=== PATIENT | male | born 1960 | race Caucasian/White ===

== ENCOUNTER 2020-04-27 16:03 | Outpatient (CLI) | payer OTHER, SELFPAY ==
--- NOTE | ~2020-04-27 | CT_ITS ---
EXAMINATION:CT lung screening DATE: 04/27/2020 16:55 INDICATION: Personal history of tobacco dependence. Smoker who quit 12 years ago with 60 pack year hi story. TECHNIQUE: Computed tomography (CT) of the chest was performed without intravenous contrast. Automate d exposure control and iterative reconstruction technique were employed. The dose-length product (DLP ) was 220.06 mGy-cm. COMPARISON: Chest 2 views 03/13/2018 FINDINGS: There is mild emphysema. There are peripheral mild reticular opacities in the upper and low er lung zones. Calcified left lung nodules and calcified left hilar and mediastinal lymph nodes are c onsistent with old granulomatous disease. No pleural effusion. The heart size is normal. No pericardi al effusion. There is mild thoracic spondylosis. IMPRESSION: 1. Lung-RADS category 1: Negative. Continue annual screening with noncontrast low-dose chest CT in 12 months. Reviewed, dictated and finalized at location A. IMPRESSION: 1. Lung-RADS category 1: Negative. Continue annual screening with noncontrast l ow-dose chest CT in 12 months.
== END 2020-04-27 16:04 | disposition home or self-care (01) ==
PROVIDERS: PCP Family Medicine; Visit Provider Family Medicine
DX: Z12.2 Encounter for screening for malignant neoplasm of respiratory organs (principal); Z87.891 Personal history of nicotine dependence
CPT/HCPCS: G0297

== ENCOUNTER 2020-05-12 06:51 | Outpatient (CLI) | payer OTHER, SELFPAY ==
[2020-05-12 07:37] LABS: Hematocrit 37.3 % (42.0-52.0); Hemoglobin 12.8 g/dL (14.0-18.0); Mean Corpuscular HGB Conc 34.3 g/dl (32-36); Mean Corpuscular Hemoglobin 31.8 pg (26-34); Mean Corpuscular Volume 92.8 fl (80-100); Mean Platelet Volume 9.4 fl (7.4-10.4); Platelet Count Result 227 k/mm3 (150-375); Red Blood Count 4.02 M/mm3 (4.6-6.20); Red Cell Distribution Width 12.2 % (11.5-14.5); White Blood Count 6.9 K/mm3 (4.5-10.0)
[2020-05-12 07:44] LABS: Add Urine Microscopic? NO; Appearance Urine Clear (Clear); Bilirubin Urine Negative (Negative); Blood Urine Negative (Negative); Color Urine Yellow (Yellow); Glucose Urine UA Negative (Negative); Ketones Urine Negative (Negative); Leukocyte Esterase Ur Negative LEU/UL (NEGATIVE); Mucus Urine Rare /lpf; Nitrate Urine Negative (Negative); Protein Urine Negative (Negative); Specific Grav Ur 1.018 (1.001-1.035); Squamous Epithelial Cell Urine Rare /hpf (Few); Urobilinogen Urine Negative mg/dL (<2.0); WBC Urine 0-3 /hpf (0-3)
[2020-05-12 07:52] LABS: Alanine Aminotransferase 36 U/L (4-50); Albumin Level 4.4 g/dL (3.5-5.1); Alkaline Phosphatase 49 U/L (38-126); Anion Gap 13.3 mmol/L (7-16); Aspartate Amino Transferase 29 U/L (17-59); Bilirubin,Total 0.4 mg/dL (0.2-1.3); Blood Urea Nitrogen 21 mg/dL (9-20); Calcium 8.9 mg/dL (8.4-10.2); Carbon Dioxide 24 mmol/L (22-30); Chloride 101 mmol/L (98-107); Cholesterol 240 mg/dL (0-200); Estimated Glomerular Filt Rate > 60; Glucose 97 mg/dL (75-110); HDL Direct 60 mg/dL; Potassium 4.3 mmol/L (3.4-5.0); Sodium 134 mmol/L (137-145); Triglycerides 211 mg/dL (<150)
[2020-05-12 08:04] LABS: LDL Cholesterol Direct 139 mg/dL
[2020-05-12 08:23] LABS: Prostate Specific Antigen 0.4 ng/mL (< OR = 4.0)
== END 2020-05-12 06:52 | disposition home or self-care (01) ==
PROVIDERS: PCP Family Medicine; Visit Provider Family Medicine
DX: Z00.00 Encounter for general adult medical examination without abnormal findings (principal); R73.01 Impaired fasting glucose; I10 Essential (primary) hypertension; E78.2 Mixed hyperlipidemia
CPT/HCPCS: 36415; 80053; 80061; 81003; 84153; 84443; 85027

== ENCOUNTER 2020-07-11 07:19 | Inpatient (IN) | payer OTHER, SELFPAY ==
[2020-07-11] VITALS (23 sets, daily range): BP systolic 114–169; BP diastolic 65–110; PULSE 60–88; RESP 0–20; TEMP 36.1–36.8; O2SAT 94–100; BMI 30.2
--- NOTE | ~2020-07-11 | XR_ITS ---
XR chest 2V 07/11/2020 07:57 Indication: Shortness of breath and chest pain Procedure: PA and lateral views of the chest Comparison: 03/13/2018 Findings: Heart size normal. No focal air space disease, pulmonary edema, pleural effusion or suspect ed pneumothorax. The lungs are hyperinflated which is consistent with, but not diagnostic of chronic obstructive pulmo nary disease. Impression: 1: No acute cardiopulmonary disease. Reviewed, dictated and finalized at location A. Impression: 1: No acute cardiopulmonary disease.
--- NOTE | 2020-07-11 07:28 | ECG_ITS ---
Measurements Intervals [place] Rate: 83 P: 78 [place]: 173 QRS: -75 QRSD: 105 T: 81 QT: 369 QTc: 435 Interpretive Statements SINUS RHYTHM INCOMPLETE RIGHT BUNDLE BRANCH BLOCK LEFT ANTERIOR FASCICULAR BLOCK BORDERLINE ST ABNORMALITY- ANTEROLAT/INF LEADS Electronically Signed On 07-11-2020 7:52:47 CDT by Lobo Machado D.O.
--- NOTE | 2020-07-11 07:41 | ED.GENADULT ---
HPI - General Adult General Chief complaint: Unspecified Stated complaint: Chest Pain Time Seen by Provider: 07/11/20 07:26 Source: patient History of Present Illness HPI narrative: Patient is 60 y/o male complaining of upper mid sternal chest pain staring 4-5 hours ago at 3:00 AM. He rates his pain as 3/10. He describes his pain a sensation of food stuck in throat. There is no pain radiation. The pain has decreased spontaneously. He has chronic SOB due to COPD. He state that he had a similar episode 3 weeks ago with sweating and it got better after he took his 's Nitro. He has history of a hypertension, but has no known history of CAD. Related Data Home Medications Medication Instructions Recorded Confirmed albuterol sulfate 90 mcg/actuation 1 puff INHALATION Q4H PRN 04/23/20 07/11/20 aerosol inhaler lisinopril 10 mg tablet 10 mg PO DAILY 04/23/20 07/11/20 Allergies Allergy/AdvReac Type Severity Reaction Status Date / Time No Known Allergies Allergy Verified 07/11/20 07:29 Review of Systems Constitutional: Constitutional: Denies chills, Denies fever(s), Denies headache(s) and Denies weakness Eyes: Eyes: Denies blurry vision ENT: Denies headache(s) and Denies neck pain Cardiovascular: Cardiovascular: Reports chest pain and Reports dyspnea Respiratory: Respiratory: Denies cough and Reports dyspnea Gastrointestinal: Gastrointestinal: Denies abdominal pain, Denies diarrhea, Denies nausea and Denies vomiting Genitourinary: Genitourinary: Denies hematuria and Denies dysuria Musculoskeletal: Musculoskeletal: Denies back pain and Denies neck pain Neurologic: Denies headache(s) and Denies weakness [facility] Past Medical History Medical History ANITA (generalized anxiety disorder) HTN (hypertension) Hyperglyceridemia IFG (impaired fasting glucose) Intermittent asthma Surgical History Surgical History History of bunionectomy History of hemorrhoidectomy Family History Family History (Updated 07/11/20 @ 13:59 by Ashely Mcneill RN) Other Unknown family medical history Social History Social History Smoking packs per day: 1 Smoking cigarettes per day: 20.0 Years smoked: 30 Smoking pack-years: 30.00 Smoking status: Former smoker Smoking end date: 10/15/04 Alcohol intake: current Drinks per week: 15 Substance use: never Substance use type: does not use Gender identity (if verbalized by the patient): Male Spiritual care concerns: No Exam Const: General: no acute distress and well developed Orientation/consciousness: oriented to person, oriented to place, oriented to time and patient oriented x3 HENMT: Head: normocephalic Ears: external ears normal General nose exam: Normal external nose present Eyes: General: appearance normal, both eyes and all related structures Conjunctivae: conjunctivae normal Neck: Neck: normal visual inspection and full ROM Chest: Chest palpation & inspection: normal inspection of the chest and no tenderness Resp: Effort & Inspection: normal respiratory effort Auscultation: clear to auscultation bilaterally Cardio: Rate: regular rate Rhythm: regular rhythm GI: GI Palp: No abdominal tenderness and Yes Soft to palpation Skin: General skin exam: normal color and turgor normal Neuro: General: oriented to person, oriented to place, oriented to time and patient oriented x3 Cognition (Neuro): normal cognition Extrem: General: normal to inspection, full ROM and no pedal edema Psych: Appearance: grossly normal Mental Status: mental status grossly normal Affect: normal affect Course Reevaluation(s) Reevaluation #1: Rechecked. Patient feels well. He has no chest pain at this time. Date: 07/11/20 Time: 11:47 Consultations Consultation #1: Discussed with Dr. Jackman, who agrees to ad
[2020-07-11 07:59] LABS: Basophils Absolute Auto 0.1 K/mm3 (0.0-0.1); Eosinophils Absolute Auto 0.2 K/mm3 (0-0.3); Eosinophils Percent Auto 2.6 % (0-4.4); Hematocrit 46.3 % (42.0-52.0); Hemoglobin 15.5 g/dL (14.0-18.0); Immature Granulocyte Absolute 0.07 K/mm3 (0.00-0.031); Immature Granulocyte Percent A 0.9 % (0-0.5); Lymphocytes Absolute Auto 3.37 K/mm3 (0.9-3.2); Lymphocytes Percent Auto 43.4 % (18.3-44.2); Mean Corpuscular HGB Conc 33.5 g/dl (32-36); Mean Corpuscular Hemoglobin 31.4 pg (26-34); Mean Corpuscular Volume 93.9 fl (80-100); Mean Platelet Volume 9.8 fl (7.4-10.4); Monocytes Absolute Auto 0.7 K/mm3 (0.1-0.6); Monocytes Percent Auto 9.4 % (2.6-8.5); Neutrophils Absolute Auto 3.3 K/mm3 (1.3-6.7); Neutrophils Percent Auto 42.7 % (45.5-73.1); Platelet Count Result 247 k/mm3 (150-375); Red Blood Count 4.93 M/mm3 (4.6-6.20); Red Cell Distribution Width 12.2 % (11.5-14.5); White Blood Count 7.8 K/mm3 (4.5-10.0)
[2020-07-11 08:11] LABS: Atypical Lymphocytes Present; Platelet Estimate Adequate (Adequate)
[2020-07-11 08:14] LABS: Alanine Aminotransferase 27 U/L (4-50); Alkaline Phosphatase 57 U/L (38-126); Anion Gap 13 mmol/L (8-16); Aspartate Amino Transferase 41 U/L (17-59); Bilirubin,Total 0.6 mg/dL (0.2-1.3); Blood Urea Nitrogen 21 mg/dL (9-20); Calcium 9.4 mg/dL (8.4-10.2); Carbon Dioxide 28 mmol/L (22-30); Chloride 99 mmol/L (98-107); Estimated Glomerular Filt Rate > 60; Glucose 99 mg/dL (75-110); Potassium 4.5 mmol/L (3.4-5.0); Sodium 140 mmol/L (137-145)
[2020-07-11 08:22] LABS: Troponin I < 0.012 ng/mL (0.000-0.034)
[2020-07-11 08:26] LABS: NT Pro B Type Natriuretic Pept 73 PG/ML (5-100)
[2020-07-11 11:36] LABS: Troponin I 0.753 ng/mL (0.000-0.034)
--- NOTE | 2020-07-11 11:54 | ECG_ITS ---
Measurements Intervals [place] Rate: 66 P: 51 [place]: 153 QRS: -60 QRSD: 101 T: 62 QT: 402 QTc: 422 Interpretive Statements SINUS RHYTHM INCOMPLETE RIGHT BUNDLE BRANCH BLOCK LEFT ANTERIOR FASCICULAR BLOCK CANNOT RULE OUT SEPTAL INFARCT, AGE INDETERMINATE BORDERLINE T WAVE ABNORMALITY- ANTERIOR LEADS BASELINE ARTIFACT- I, II, III, AVR, AVL, V3-V4 ABNORMAL ECG Electronically Signed On 07-11-2020 20:02:37 CDT by Lobo Machado D.O.
[2020-07-11] MEDS: ENOXAPARIN 120 MG/0.8 ML SYRINGE (12:00)
[2020-07-11] MEDS: ASPIRIN 81 MG CHEWABLE TABLET 324 MG PO (12:01)
--- NOTE | 2020-07-11 12:02 | PC.NURSE ---
Patient was given 110 mg of lovenox. Patient wished to only have 1 shot instead of having 2. A larger lovenox was pulled instead of giving pt two injections.
--- NOTE | 2020-07-11 14:01 | ADMGEN ---
This patient, Rafael Arora, was admitted to IMU Room 211-01. Patient/family oriented to hospital policies and general routines including ID bracelet, bed and alarms, visiting hours, pain management, procedures, bathroom and other care routines, personal items, smoking policy, room service/diet, and visiting hours. Valuables list has been completed. Information on how to activate the Rapid Response Team has been discussed. Patient/Family are encouraged to report perceived risks to care and to ask questions if they do not understand what they are told or what they should do.
[2020-07-11] MEDS: METOPROLOL TARTRATE 25 MG TABLET PO ×2 (15:08→21:27)
[2020-07-12] VITALS (16 sets, daily range): BP systolic 102–159; BP diastolic 53–90; PULSE 57–78; RESP 11–18; TEMP 35.7–36.9; O2SAT 94–98
--- NOTE | 2020-07-12 05:00 | ECG_ITS ---
Measurements Intervals [place] Rate: 60 P: 46 [place]: 163 QRS: -68 QRSD: 102 T: 82 QT: 485 QTc: 486 Interpretive Statements SINUS RHYTHM WITH SINUS ARRHYTHMIA INCOMPLETE RIGHT BUNDLE BRANCH BLOCK LEFT ANTERIOR FASCICULAR BLOCK T WAVE ABNORMALITY IN ANTEROLATERAL LEADS- CONSIDER ISCHEMIA ABNORMAL ECG Electronically Signed On 07-12-2020 13:30:57 CDT by Lobo Machado D.O.
[2020-07-12 05:25] LABS: Cholesterol 227 mg/dL (0-200); HDL Direct 53 mg/dL; Triglycerides 326 mg/dL (<150)
[2020-07-12 05:36] LABS: LDL Cholesterol Direct 113 mg/dL
[2020-07-12] MEDS: METOPROLOL TARTRATE 25 MG TABLET PO (08:12)
--- NOTE | 2020-07-12 08:36 | PM.IMHP ---
H&P: HPI History of Present Illness Date/Time: 07/12/20 08:36 Chief complaint: nstemi Narrative: Rafael Arora is a 60 year old male admitted to our service yesterday after being seen in the emergency room in the morning with episode of upper retrosternal chest pain. The patient has no previous cardiac history and has had 2 instances like this in the last 3 weeks. He describes the sudden onset of pressure-like sensation in the upper substernal region to the lower aspect of his neck. He described this as similar to times when he has had difficulty with pain after trying to swallow large bolus of food. The symptoms however did not occur as he was eating. They did not really associated with any air hunger diaphoresis nausea or vomiting. The symptoms do not radiate any other location. The 1st episode of this occurred and lasted for 30-40 minutes before subsiding and he did not seek any medical attention at that time. He has had 2 or 3 other episodes. He as it happens his has coronary artery disease and has as prescription for sublingual nitroglycerin. He had an episode early yesterday morning it awakened him from sleep he took 1 of his 's nitroglycerin tablets and within 5-10 minutes experienced relief of his symptoms. When that occurred they became much more concerned and came to the emergency room yesterday for evaluation. He had 2 electrocardiograms done down there the 1st of which showed very subtle lateral precordial ST segment depression. This 2nd EKG shows resolution of this he has also a left anterior superior hemiblock. In this setting he is being seen in consultation the patient has a history of hypertension and a history of some degree of chronic obstructive lung disease with previous history of smoking. He stopped smoking 15 years ago. Patient has no idea regarding his family history of coronary disease since he is adopted. He has no knowledge of dyslipidemia or diabetes. Troponin levels in the emergency room were negative but the 3rd sample ace up to 1.2 in this setting I am seeing him and evaluation this morning. He has had any further symptoms since he has been up in IMU. Review of Systems Constitutional: Constitutional: Reports no additional constitutional complaints Eyes: Eyes: Reports no additional eye complaints ENT: Reports system reviewed and no additional complaints, except as documented Cardiovascular: Cardiovascular: Reports as per HPI Respiratory: Respiratory: Reports no additional respiratory complaints Gastrointestinal: Gastrointestinal: Reports no additional gastrointestinal complaints Musculoskeletal: Musculoskeletal: Reports no additional musculoskeletal complaints Integumentary/Breasts: Skin/Breast: Reports system reviewed and no additional complaints, except as docu Neurologic: Reports system reviewed and no additional complaints, except as documented Psychiatric: Psychiatric: Reports no additional psychiatric complaints PMFSH Past Medical History Medical History ANITA (generalized anxiety disorder) HTN (hypertension) Hyperglyceridemia IFG (impaired fasting glucose) Intermittent asthma Surgical History Surgical History History of bunionectomy History of hemorrhoidectomy Family History Family History (Updated 07/11/20 @ 13:59 by Ashely Mcneill RN) Other Unknown family medical history Social History Social History Smoking packs per day: 1 Smoking cigarettes per day: 20.0 Years smoked: 30 Smoking pack-years: 30.00 Smoking status: Former smoker Smoking end date: 10/15/04 Alcohol intake: current Drinks per week: 15 Substance use: never Substance use type: does not use Gender identity (if verbalized by the patient): Male Spiritual care concerns: No Meds Home Medications and Allergies Home
--- NOTE | 2020-07-12 11:06 | WPDMODSED ---
Moderate Sedation Note-Pt Data Patient Data Diagnosis: acute coronary syndrome / non ST elevation CT Present Complaint: this is a 60-year-old man with several recent episodes of upper retrosternal chest pain /to anterior neck pain. He was admitted with an episode of this that was nitrate responsive. The pain was associated with very subtle lateral precordial ST depression and a rising troponin. Cardiac risk factors include hypertension and reformed history smoking. Procedure to be performed/Plan: Left heart catheterization Allergies Allergy/AdvReac Type Severity Reaction Status Date / Time No Known Allergies Allergy Verified 07/11/20 07:29 Home Medications Medication Instructions Recorded Confirmed Type albuterol sulfate 90 mcg/actuation 1 puff INHALATION Q4H PRN 04/23/20 07/11/20 History aerosol inhaler lisinopril 10 mg tablet 10 mg PO DAILY 04/23/20 07/11/20 History paroxetine HCl 20 mg tablet 20 mg PO DAILY #90 tablet 04/23/20 07/11/20 Rx Current Medications: Active Medications Acetaminophen (Tylenol Tablet) 650 mg PO Q6H PRN PRN Reason: Mild Pain (1-3) or Fever Metoprolol Tartrate (Lopressor) 25 mg PO Q12HR SANTOSH Last Admin: 07/12/20 08:12 Dose: 25 mg Documented by: Nitroglycerin (Nitrostat Subl 0.4 Mg (1/150)) 0.4 mg SUBLINGUAL PRN PRN PRN Reason: Chest Pain Sedation/Anesthesia: No previous sedation/anesthesia problems (including family history). [facility] Past Medical History Medical History ANITA (generalized anxiety disorder) HTN (hypertension) Hyperglyceridemia IFG (impaired fasting glucose) Intermittent asthma Surgical History Surgical History History of bunionectomy History of hemorrhoidectomy Family History Family History (Updated 07/11/20 @ 13:59 by Ashely Mcneill RN) Other Unknown family medical history Social History Social History Smoking packs per day: 1 Smoking cigarettes per day: 20.0 Years smoked: 30 Smoking pack-years: 30.00 Smoking status: Former smoker Smoking end date: 10/15/04 Alcohol intake: current Drinks per week: 15 Substance use: never Substance use type: does not use Gender identity (if verbalized by the patient): Male Spiritual care concerns: No Mod Sed Physical Exam Physical Exam Pre Procedural Exam: Normal: Appearance, Throat, Airway, Lungs, Heart Size, Heart Rate, Heart Rhythm, Neuro Exam and Extremities Hours since solid foods: 12 Hours since liquid intake: 12 Internal Medicine - PN: Obj Da Vital Signs Vital Signs: Vital Signs - 24 hr 07/11/20 11:40 07/11/20 12:06 07/11/20 12:15 Temperature Pulse Rate 71 69 68 Respiratory Rate 20 13 13 Blood Pressure 117/65 Pulse Oximetry 99 100 100 07/11/20 12:16 07/11/20 12:31 07/11/20 12:35 Temperature Pulse Rate 68 73 67 Respiratory Rate 16 19 12 Blood Pressure 133/93 H 128/81 Pulse Oximetry 100 98 94 07/11/20 12:54 07/11/20 13:00 07/11/20 13:01 Temperature Pulse Rate Respiratory Rate 0 L Blood Pressure 114/99 H Pulse Oximetry 96 98 97 07/11/20 13:15 07/11/20 13:16 07/11/20 13:20 Temperature Pulse Rate 73 Respiratory Rate 0 L 0 L 18 Blood Pressure 132/95 H 132/95 H Pulse Oximetry 99 100 97 07/11/20 13:30 07/11/20 14:00 07/11/20 14:38 Temperature 36.7 C Pulse Rate 70 78 72 Respiratory Rate 14 20 Blood Pressure 155/92 H Pulse Oximetry 99 100 07/11/20 15:08 07/11/20 16:00 07/11/20 18:00 Temperature 36.2 C L Pulse Rate 82 64 70 Respiratory Rate 18 Blood Pressure 139/93 H Pulse Oximetry 98 07/11/20 20:00 07/11/20 21:27 07/11/20 22:00 Temperature 36.1 C L Pulse Rate 60 61 62 Respiratory Rate 18 Blood Pressure 135/80 Pulse Oximetry 97 07/12/20 00:00 07/12/20 02:00 07/12/20 04:00 Temperature 36.9 C 36.1 C L Pulse Rate 62
--- NOTE | 2020-07-12 12:26 | WPDCARDPROC ---
Cardiac Cath Procedure Note Date of procedure:: 07/12/20 Performing physician:: Kelechi Oneal MD Indication:: non ST-elevation SD Brief clinical history:: this 60-year-old man with no previous documented history of coronary disease. He has hypertension which is been managed with SARAH-inhibitor therapy. He entered the hospital with intermittent chest pain evidence of non ST elevation SD with troponin elevation. Was modest lateral precordial ST depression with chest pain. In symptoms were nitrate responsive. In this setting an angiogram has been recommended. Procedure Procedure performed:: Left heart catheterization with left ventriculography and coronary angiography. Placement of intra-aortic balloon pump Sedation/Medication given:: fentanyl 50 mg Versed 2 mg case start time 11 50 case end time 12:20 p.m. sedation provided by Marvin Sanchez RN, trained observer Access site:: right femoral artery Estimated blood loss:: 15-20 cc Procedure note:: patient was brought to the cardiac catheterization lab in postabsorptive state the right femoral triangle was prepped draped usual fashion. Anesthesia was given 1% lidocaine infiltrated locally. Using the modified Seldinger technique a 5 Kenyan sheath was placed into the right femoral artery after this left heart catheterization was carried out. A 5 Kenyan angled pigtail catheter was used to document left-sided hemodynamics and to injected LV g in the DAVILA projection. After documenting pullback pressures across the aortic valve the pigtail catheter was withdrawn. The left coronary artery was then engaged and injected using a standard 5 Kenyan FL4 catheter. The right coronary was injected using a 5 Kenyan JR4 catheter. This any angiograms were then reviewed and the decision was made to place an intra-aortic balloon pump. The 5 Kenyan sheath was withdrawn over the guidewire and the 8 Kenyan balloon pump sheath was then placed into the femoral artery. Following this the intra-aortic balloon pump was advanced to the descending thoracic aorta with the tip just distal to the left subclavian artery. The pump was filled and one-to-one counterpulsation pumping was instituted. The patient was given a bolus of heparin 7000 units placed on a heparin drip at 1000 unit/hour. Procedure was well tolerated there were no apparent complications. There was no evidence of a groin hematoma at the conclusion of the case. Findings:: Hemodynamics: Central aortic pressure 12/04/2065 left ventricle 122 over 10 end-diastolic pressure 22 there is no gradient on pullback across the aortic valve. The left main coronary artery is moderate caliber and has mild atherosclerotic stenosis of about 20-30%. The left anterior descending is a [id number] caliber artery with ostial subtotal stenosis of 99%. This is a discrete lesion just off the left main. The remainder of the LAD is free of significant disease. Circumflex is a large caliber artery the which appears to be dominant to the posterior wall. The circumflex has an ostial stenosis just off the left main of about 80%. The remainder of the circumflex is free of significant disease. Right coronary artery is small and non dominant. The right coronary is angiographically non disease. Conclusion:: 1. Left dominant coronary circulation with critical coronary disease including modest left main stenosis, subtotal 99% stenosis at the LAD ostium and high-grade stenosis at the circumflex ostium as detailed above. 2. Non dominant right coronary artery which is non diseased 3. normal left ventricular systolic function 4. based on the critical left main equivalent anatomy intra-aortic balloon pump was placed at the conclusion of the procedure patient was systemically heparinized as we are making plans for transfer for cardiothoracic surgery consultation Kelechi Oneal MD [facility]
[2020-07-12] MEDS: SODIUM CHLORIDE 0.9% IV 1,000 ML 125 ML IV CONT (13:06)
--- NOTE | 2020-07-12 13:43 | WPDCNINT ---
Assessment and Plan Assessment and plan (1) Non-ST elevation IN (NSTEMI): Code(s): I21.4 - Non-ST elevation (NSTEMI) myocardial infarction Status: Acute Assessment and Plan: patient with NSTEMI, status post coronary angiogram which revealed left dominant coronary circulation with critical coronary artery disease including modest left main stenosis, subtotal 99% stenosis at the LAD ostium rate stenosis at the circumflex ostium. -Normal LV systolic function. Given the above findings patient is a candidate for cardiothoracic surgery consultation for which he will be transferred to an outside hospital. Interim intra-aortic balloon pump was inserted and he was transferred to the ICU tele gets a better at [facility]. - patient has a intra-aortic balloon pump, on heparin infusion - currently hemodynamically stable with adequate blood pressures (2) HTN (hypertension): Code(s): I10 - Essential (primary) hypertension Status: Acute Assessment and Plan: patient started on metoprolol by Cardiology (3) Hyperglyceridemia: Code(s): E78.1 - Pure hyperglyceridemia Status: Acute Assessment and Plan: will need to be started on statins post surgery Additional Plan discussed with patient and his , updated on patient's condition and plan of care. They are aware that patient be transferring to [facility] code status: Full code critical care time spent: 37 minutes discussed with diversional therapist's assistant Due to a high probability of clinically significant, life threatening deterioration, the patient required my highest level of preparedness to intervene emergently and I personally spent this critical care time directly and personally managing the patient. This critical care time included obtaining a history; examining the patient; pulse oximetry; ordering and review of studies; arranging urgent treatment with development of a management plan; evaluation of patient's response to treatment; frequent reassessment; and discussions with other providers. It was exclusive of separately billable procedures and treating other patients and teaching time. Please see Assessment and Plan section and the rest of the note for further information on patient assessment and treatment Rn Occupational Health Consult Note Consult date: 07/12/20 Time Seen: 13:24 Reason for consult: NSTEMI HPI: Rafael Arora is a 60 year old male past medical history of general anxiety disorder, essential hypertension, hypertriglyceridemia, PET fasting glucose, intermittent asthma presented the ED last night on 07/11/2020 with complains retrosternal chest pain, pressure-like sensation which radiated to lower aspect of his neck. He has had similar chest pain 2 with instances when the last 3 weeks. Which lasted 4-5 hours which radiated to the throat, accompanied with shortness breath . Patient did take a nitroglycerin with relief and since his also has coronary artery disease that made them suspicious of heart issues which prompted them to come to the ER. His EKG showed subtle lateral ST segment depression. Mild elevation initially of the troponin with increasing to 1.2 on the 3rd sample. Patient underwent a coronary angiogram which showed left dominant coronary circulation with critical coronary artery disease including modest left main stenosis, subtotal 99% stenosis at the LAD ostium rate stenosis at the circumflex ostium. Normal LV systolic function. Given the above findings patient is a candidate for cardiothoracic surgery consultation for which he will be transferred to an outside hospital. Interim intra-aortic balloon pump was inserted and he was transferred to the ICU tele gets a better at [facility]. Patient seen and examined the ICU, denies any chest pain, shortness of breath, nausea, vomiting, diaphoresis. Patient is hemodynamically stable. Is awake, alert, oriented x3, nonfocal, able to answer
[2020-07-12] MEDS: HEPARIN SOD/D5W 100 UNITS/ML 25,000 UNITS/250 ML BAG 10 UNITS IV CONT (14:40)
--- NOTE | 2020-08-03 07:12 | PM.DS ---
DS: Admitting Diagnosis Admitting Diagnosis Admitting Diagnosis: nstemi DS: Discharge Diagnosis Discharge Diagnosis (1) Non-ST elevation NC (NSTEMI): Code(s): I21.4 - Non-ST elevation (NSTEMI) myocardial infarction Status: Acute DS: Summary Hospital Course Reason for hospitalization: Acute coronary syndrome / non ST elevation NC Hospital Course: this is a 60-year-old man was admitted to the emergency room with intermittent episodes of ischemic chest pain that started approximately 2-3 weeks prior to admission. In the emergency room he did have some dynamic lateral ST segment depression noted with his chest pain that resolved with resolution of the symptoms in the emergency department. Following admission troponin ace up slightly to 1.2. As a result of this angiography was recommended. Patient was brought to the cardiac catheterization lab and found to have left coronary dominant circulation with critical subtotal stenosis at the ostium of the LAD as well as high-grade stenosis at the ostium of the circumflex. Given this anatomy surgical myocardial revascularization was recommended. Because of the critical nature of the anatomy to a attempt to keep this from the stabilizing and intra-aortic balloon pump was placed he was anticoagulated and brought to the ICU. The cardiothoracic surgery team at [facility] was contacted and consulted and accept the patient in transfer. He was then transferred by ambulance to the ICU at [facility] in preparation for coronary artery bypass surgery Status at Discharge Functional status at discharge: bed bound Time Spent with Patient Time attestation: Total time spent providing and/or coordinating discharge services: Time spent: Greater than 30 minutes Exam Const: General: uncomfortable Other: morbidly obese gentleman supine in bed with intra-aortic balloon pump in place HENMT: Mouth: Yes moist mucous membranes Eyes: Sclera: sclerae normal Pupils: Equal, round and reactive pupils present Neck: Neck: supple Thyroid: thyroid normal Other: inability to assess JVD given his body habitus Resp: Effort & Inspection: normal respiratory effort Auscultation: clear to auscultation bilaterally Other: breath sounds clear but distant Cardio: Rate: regular rate Rhythm: regular rhythm Other: PMI not palpable no audible murmur or gallop GI: GI Palp: Yes Soft to palpation Auscultation: normal bowel sounds Skin: General skin exam: normal color Neuro: Other: intact neurological status, normal cognition Extrem: General: normal to inspection Discharge Plan Discharge Attending physician on discharge: Kelechi Oneal Consulting providers: Judd Amato ; Eyad Collins ; Lobo Machado Discharging Clinician: Kelechi Oneal Patient Disposition: Acute Care Hospital Activity: other - see discharge instructions Diet: NPO Discharge Instructions: patient being transferred to [facility] for surgical myocardial revascularization Patient Instructions: Chest Pain (GEN), High Troponin Levels (GEN) Discharge Medications: Discontinued lisinopril 10 mg tablet 10 mg PO DAILY RF: 0 albuterol sulfate [Ventolin HFA] 90 mcg/actuation HFA aerosol inhaler 1 puff INHALATION Q4H PRN (Reason: Shortness Of Breath Or Wheezing) RF: 0 paroxetine HCl 20 mg tablet 20 mg PO DAILY Qty: 90 RF: 3 Date of admission: 07/11/20 12:45 Primary Care Provider: Marvin Mansfield Admitting Provider: Nadia Jackman Attending physician on admission: Kelechi Oneal Condition: Stable
--- NOTE | 2020-08-03 07:18 | TS_ITS ---
DS: Admitting Diagnosis Admitting Diagnosis Admitting Diagnosis: nstemi DS: Discharge Diagnosis Discharge Diagnosis (1) Non-ST elevation MD (NSTEMI): Code(s): I21.4 - Non-ST elevation (NSTEMI) myocardial infarction Status: Acute DS: Summary Hospital Course Reason for hospitalization: Acute coronary syndrome / non ST elevation MD Hospital Course: this is a 60-year-old man was admitted to the emergency room with intermittent episodes of ischemic chest pain that started approximately 2-3 weeks prior to admission. In the emergency room he did have some dynamic lateral ST segment depression noted with his chest pain that resolved with resolution of the symptoms in the emergency department. Following admission troponin ace up slightly to 1.2. As a result of this angiography was recommended. Patient was brought to the cardiac catheterization lab and found to have left coronary dominant circulation with critical subtotal stenosis at the ostium of the LAD as well as high-grade stenosis at the ostium of the circumflex. Given this anatomy surgical myocardial revascularization was recommended. Because of the critical nature of the anatomy to a attempt to keep this from the stabilizing and intra-aortic balloon pump was placed he was anticoagulated and brought to the ICU. The cardiothoracic surgery team at [facility] was contacted and consulted and accept the patient in transfer. He was then transferred by ambulance to the ICU at [facility] in preparation for coronary artery bypass surgery Status at Discharge Functional status at discharge: bed bound Time Spent with Patient Time attestation: Total time spent providing and/or coordinating discharge services: Time spent: Greater than 30 minutes Exam Const: General: uncomfortable Other: morbidly obese gentleman supine in bed with intra-aortic balloon pump in place HENMT: Mouth: Yes moist mucous membranes Eyes: Sclera: sclerae normal Pupils: Equal, round and reactive pupils present Neck: Neck: supple Thyroid: thyroid normal Other: inability to assess JVD given his body habitus Resp: Effort & Inspection: normal respiratory effort Auscultation: clear to auscultation bilaterally Other: breath sounds clear but distant Cardio: Rate: regular rate Rhythm: regular rhythm Other: PMI not palpable no audible murmur or gallop GI: GI Palp: Yes Soft to palpation Auscultation: normal bowel sounds Skin: General skin exam: normal color Neuro: Other: intact neurological status, normal cognition Extrem: General: normal to inspection Discharge Plan Discharge Attending physician on discharge: Kelechi Oneal Consulting providers: Judd Amato ; Eyad Collins ; oLbo Machado Discharging Clinician: Kelechi Oneal Patient Disposition: Acute Care Hospital Activity: other - see discharge instructions Diet: NPO Discharge Instructions: patient being transferred to [facility] for surgical myocardial revascularization Patient Instructions: Chest Pain (GEN), High Troponin Levels (GEN) Discharge Medications: Discontinued lisinopril 10 mg tablet 10 mg PO DAILY RF: 0 albuterol sulfate [Ventolin HFA] 90 mcg/actuation HFA aerosol inhaler 1 puff INHALATION Q4H PRN (Reason: Shortness Of Breath Or Wheezing) RF: 0 paroxetine HCl 20 mg tablet 20 mg PO DAILY Qty: 90 RF: 3 Date of admission: 07/11/20 12:45 Primary Care Provider: Marvin Mansfield Admitting Provider: Nadia Jackman Attending physician on admission: Kelechi Oneal Condition: Stable Report Initialized date/time: Kelechi Oneal MD 08/03/[id number] Electronically signed by:
== END 2020-07-12 17:35 | disposition short-term general hospital (02) | DRG 272 ==
LOC: ANHED 12:54 → ANHIMU 14:31 → ANHICU 07-13 15:56 → ANHIMU 07-13 15:56
PROVIDERS: Admitting Provider Internal Medicine Cardiovascular Disease; Emergency Provider Emergency Medicine; PCP Family Medicine; Visit Provider Specialist
PROC: 4A023N7 Measurement of Cardiac Sampling and Pressure, Left Heart, Percutaneous Approach (ICD-10-PCS; CPT 93452; principal; 2020-07-12 11:30)
PROC: 4A023N7 Measurement of Cardiac Sampling and Pressure, Left Heart, Percutaneous Approach (ICD-10-PCS; 2020-07-12 11:30)
DX: I21.4 Non-ST elevation (NSTEMI) myocardial infarction (principal); I10 Essential (primary) hypertension; F41.1 Generalized anxiety disorder; I25.10 Atherosclerotic heart disease of native coronary artery without angina pectoris; E78.1 Pure hyperglyceridemia; Z87.891 Personal history of nicotine dependence
CPT/HCPCS: 33967; 36415; 71046; 80053; 80061; 83880; 84484; 85025; 93005; 93458; 96372; 99291; A9270; C1887; C1894; J1644; J1650; J2250; J3010; J7030

== ENCOUNTER 2021-07-12 07:55 | Outpatient (CLI) | payer OTHER, SELFPAY ==
--- NOTE | 2021-07-21 15:55 | WPDHOMESLEEP ---
Sleep Study - Home Unattended Date of Study: 07/12/21 <Little Verdugo DO - Last Filed: 07/21/21 17:25> Ordering Provider: Marvin Mansfield MD <Little Verdugo DO - Last Filed: 07/21/21 17:25> Interpreting Provider: Little Verdugo DO <Little Verdugo DO - Last Filed: 07/21/21 17:25> Home Sleep Study Type: Watch PAT <Little Verdugo DO - Last Filed: 07/21/21 17:25> Height: 1.85 m <Little Verdugo DO - Last Filed: 07/21/21 17:25> Weight: 102.058 kg <Little Verdugo DO - Last Filed: 07/21/21 17:25> Body Mass Index: 29.7 <Little Verdugo DO - Last Filed: 07/21/21 17:25> Neck Circumference (inches): 17.50 <Little Verdugo DO - Last Filed: 07/21/21 17:25> [place]: 5 <Little Verdugo DO - Last Filed: 07/21/21 17:25> Reason for Sleep Study The patient was referred to have a home sleep test because his has witnessed apneic events. The patient experiences excessive daytime fatigue, multiple nighttime awakenings and constant dry mouth. <Little Verdugo DO - Last Filed: 07/21/21 17:25> Sleep History The patient is a 61-year-old male with hypertension, CAD, general anxiety disorder and hyperlipidemia that has had a home sleep test ordered due to multiple sleep disturbances. The patient states that he occasionally wakes from sleep short he rarely awakens night heartburn belching or. He frequently snores and wakes up his he often wakes up gasping for air throughout night. Has noticed that he has heart palpitations throughout the night. He constantly falls asleep. He has never fallen asleep while. He denies cataplexy, sleep paralysis. The patient states that really has trouble at work due to sleepiness. He often experiences vivid dreamlike scenes upon awakening or falling asleep. He rarely has nightmares. He frequently has thoughts racing through his mind. He really feels depressed but often feels anxious. He rarely notices parts of his body jerk. He rarely kicks throughout the night. He denies any crawling and aching feelings in his legs. He rarely grants his teeth during sleep but never has morning jaw pain. He is rarely bothered by pain throughout the day or night. He rarely wakes up feeling stiff. the patient goes to bed at 8:00 a.m. on the week days and 1-2 a.m. on the weekends. He usually gets about 7 hours of sleep. He wakes up 4-5 times per night to use the restroom and can fall asleep within 30 minutes or less. On the weekends he wakes up at 3:00 p.m. and on the weekends he wakes up at 10-11 a.m.. The patient currently lives with his , son, son's girlfriend and their daughter. The patient denies any consumption of caffeinated beverages 2 hours prior to bedtime. He does not engage in physical exercise before bedtime. He does not watch TV or read prior to bed. He does take naps in the afternoon or the evening and he does feel refreshed afterwards. The patient quit smoking 15 years ago. He does drink 3-4 caffeinated beverages per week. He drinks 4 alcoholic beverages per day. He denies recreational drug use. <Little Verdugo DO - Last Filed: 07/21/21 17:25> [facility] Past Medical History Medical History: Medical History CAD (coronary artery disease) ANITA (generalized anxiety disorder) HTN (hypertension) Hyperglyceridemia Hypertension with heart disease IFG (impaired fasting glucose) Intermittent asthma [place] (myocardial infarction) KIMI (obstructive sleep apnea) <Little Verdugo DO - Last Filed: 07/21/21 17:25> Surgical History Surgical History: Surgical History History of bunionectomy History of coronary artery bypass graft x 2 History of hemorrhoidectomy <Little Verdugo, DO - Last Filed: 07/21/21 17:25> Family History Family History: Family
[2021-07-21 16:12] VITALS: BMI 29.7
== END 2021-07-21 10:24 | disposition home or self-care (01) ==
LOC: ANHCSM 07:57
PROVIDERS: PCP Family Medicine; Visit Provider Family Medicine
DX: G47.33 Obstructive sleep apnea (adult) (pediatric) (principal)
CPT/HCPCS: 95800

== ENCOUNTER 2021-10-09 07:14 | Emergency (ER) | payer OTHER, SELFPAY ==
[2021-10-09] VITALS (10 sets, daily range): BP systolic 135–180; BP diastolic 78–98; PULSE 65–102; RESP 9–18; TEMP 36.1; O2SAT 95–100
--- NOTE | ~2021-10-09 | CT_ITS ---
EXAMINATION: CTA chest PE protocol DATE: 10/09/2021 11:42 INDICATION: Shortness of breath. History of COPD. TECHNIQUE: Computed tomography angiography (CTA) of the chest was performed with 100 mL Omnipaque-350 intravenous contrast timed to evaluate the pulmonary arteries. Coronal maximum intensity projection 3D-reconstructions were created by the technologist. Automated exposure control and iterative reconst ruction technique were employed. Exam dose: 923.76 mGy-cm total exam DLP. COMPARISON: 04/27/2020 CT lung screening 10/09/2021 portable AP chest FINDINGS: The pulmonary arteries are moderately opacified. No apparent pulmonary embolism. No thoracic aortic aneurysm or dissection. Normal heart size. Status post sternotomy. No hilar or mediastinal mass lesion or lymphadenopathy. Moderate emphysematous changes are noted. There is minimal dependent bilateral lower lobe atelectasis , right greater than left. No pulmonary infiltrate or consolidation. Normal morphology of the adrenal glands. Included skeletal structures are unremarkable. IMPRESSION: Emphysema No evidence of pulmonary embolism Status post sternotomy Reviewed, dictated and finalized at [facility]. Reviewed, dictated and finalized at [facility]. MATE HOOPS REFEREE
--- NOTE | ~2021-10-09 | XR_ITS ---
XR chest 1V portable DATE: 10/09/2021 10:01 INDICATION: Cough, congestion. History of COPD. TECHNIQUE: Portable upright AP chest on 10/09/2021 at 0957 hours COMPARISON: 07/11/2020 PA and lateral chest FINDINGS: Status post sternotomy. Normal heart size. No hilar or mediastinal enlargement. The lungs are hyperinflated but clear of infiltrate or consolidation. No pleural effusion or pulmonar y vascular congestion or pneumothorax is detected. Diffuse osteopenia. IMPRESSION: Bilateral hyperinflation; no active cardiac pulmonary disease Reviewed, dictated and finalized at [facility]. CHISE BROKER
--- NOTE | 2021-10-09 09:50 | ECG_ITS ---
Measurements Intervals [place] Rate: 68 P: 44 SD: 175 QRS: -66 QRSD: 108 T: 7 QT: 422 QTc: 450 Interpretive Statements SINUS RHYTHM INCOMPLETE RIGHT BUNDLE BRANCH BLOCK LEFT ANTERIOR FASCICULAR BLOCK BORDERLINE T WAVE ABNORMALITY- INFERIOR LEADS BASELINE ARTIFACT- II, AVR, V1 ABNORMAL ECG Electronically Signed On 10-09-2021 17:47:55 COLLECTION ANALYST by Lobo Machado D.O.
[2021-10-09 10:21] LABS: Alveolar/Arterial O2 Gradient 20.5 mmHg; Base Excess ABG -0.3 mEq/l (+/-2.0); HCO3 ABG 23.6 mEq/l (22.0-26.0); Oxygen Content ABG 19.6 %vol (16.0-22.0); Oxygen Saturation ABG 96.7 % (95.0-100.0); Oxyhemoglobin 95.4 % THb (90.0-100.0); PCO2 ABG 36.5 mmHg (35.0-45.0); PO2 ABG 85.5 mmHg (80.0-100.0); Total Hemoglobin 13.8 g/dL (12.0-18.0); pH ABG 7.429 (7.350-7.450)
[2021-10-09 10:22] LABS: Carboxyhemoglobin 0.5 % THb (0-2.0); Device ROOM AIR; Fractional Inspired Oxygen 21 %; Methemoglobin ABG 0.2 %THb (0-1.5); PO2 FiO2 Ratio Arterial Blood 4.07 %; Reduced Hemoglobin 3.9 %THb (0-5.0); Site Drawn LEFT RADIAL
[2021-10-09 10:27] LABS: Alanine Aminotransferase 45 U/L (4-50); Alkaline Phosphatase 79 U/L (38-126); Anion Gap 7 mmol/L (8-16); Aspartate Amino Transferase 34 U/L (17-59); Bilirubin,Total 0.4 mg/dL (0.2-1.3); Blood Urea Nitrogen 13 mg/dL (9-20); Calcium 9.4 mg/dL (8.4-10.2); Carbon Dioxide 24 mmol/L (22-30); Chloride 106 mmol/L (98-107); Estimated Glomerular Filt Rate > 60; Glucose 97 mg/dL (65-110); Potassium 4.1 mmol/L (3.4-5.0); Sodium 137 mmol/L (137-145)
[2021-10-09 10:29] LABS: Basophils Absolute Auto 0.1 K/mm3 (0.0-0.1); Basophils Percent Auto 0.9 % (0.2-1.2); Eosinophils Absolute Auto 0.2 K/mm3 (0-0.3); Hematocrit 44.6 % (42.0-52.0); Hemoglobin 14.2 g/dL (14.0-18.0); Immature Granulocyte Absolute 0.02 K/mm3 (0.00-0.031); Immature Granulocyte Percent A 0.3 % (0-0.5); Immature Platelet Fraction Pct 2.4 % (0.9-11.2); Lymphocytes Absolute Auto 1.37 K/mm3 (0.9-3.2); Lymphocytes Percent Auto 20.6 % (18.3-44.2); Mean Corpuscular HGB Conc 31.8 g/dl (32-36); Mean Corpuscular Hemoglobin 32.1 pg (26-34); Mean Corpuscular Volume 100.7 fl (80-100); Mean Platelet Volume 9.6 fl (7.4-10.4); Monocytes Absolute Auto 0.7 K/mm3 (0.1-0.6); Monocytes Percent Auto 9.8 % (2.6-8.5); Neutrophils Absolute Auto 4.3 K/mm3 (1.3-6.7); Neutrophils Percent Auto 65.4 % (45.5-73.1); Platelet Count Result 206 k/mm3 (150-375); Red Blood Count 4.43 M/mm3 (4.6-6.20); Red Cell Distribution Width 12.2 % (11.5-14.5); White Blood Count 6.6 K/mm3 (4.5-10.0)
--- NOTE | 2021-10-09 10:42 | ED.GENADULT ---
HPI - General Adult General Chief complaint: Upper Respiratory Infection Stated complaint: upper respriratory sx Time Seen by Provider: 10/09/21 10:04 Source: patient Mode of arrival: ambulatory Limitations: no limitations History of Present Illness HPI narrative: Patient presents for evaluation of respiratory symptoms. He states he developed sinus congestion and headache which have persisted this week. He developed a cough two days ago. Cough is productive of yellow sputum. He has associated shortness of breath. He denies fever, chills, nausea, vomiting, chest pain, abdominal pain, diarrhea. His , son, and grandchildren have similar symptoms. He has not taken a Covid test. He has received both doses of his Covid vaccination. He has underlying hypertension, hyperlipidemia, [place] status post bypass, COPD, KIMI. He recently had a sleep study and has a CPAP ordered that he has not received yet. He reports waking from sleep gasping for air. He is a former smoker. He tried using his ventolin MDI earlier. He had improvement in his symptoms for about twenty minutes with recurrence thereafter. Related Data Home Medications Medication Instructions Recorded Confirmed fluticasone propionate 50 1 spray INTRANASAL BID 11/01/20 mcg/actuation nasal spray,suspension Allergies Allergy/AdvReac Type Severity Reaction Status Date / Time No Known Allergies Allergy Verified 05/25/21 07:40 Review of Systems Review of Systems: CONSTITUTIONAL: Denies fever, chills, or sweats. EYES: Denies visual changes, redness, or discharge. ENT: Reports sinus congestion, sore throat. Denies otalgia CARDIOVASCULAR: Denies chest pain, palpitations, or edema. RESPIRATORY: Reports cough and SOB GASTROINTESTINAL: Denies abdominal pain, nausea, vomiting, or diarrhea. GENITOURINARY: Denies dysuria or hematuria. SKIN: Denies rash or itching. MUSCULOSKELETAL: Denies back pain, joint pain, or myalgia. NEUROLOGIC: Reports headache. Denies numbness, dizziness, or weakness. PSYCHIATRIC: Denies anxiety or depression. [facility], [facility] Past Medical History Medical History CAD (coronary artery disease) ANITA (generalized anxiety disorder) HTN (hypertension) Hyperglyceridemia Hypertension with heart disease IFG (impaired fasting glucose) Intermittent asthma [place] (myocardial infarction) KIMI (obstructive sleep apnea) Surgical History Surgical History History of bunionectomy History of coronary artery bypass graft x 2 History of hemorrhoidectomy Family History Family History Other Unknown family medical history Social History Social History Smoking packs per day: 1 Smoking cigarettes per day: 20.0 Years smoked: 30 Smoking pack-years: 30.00 Smoking status: Former smoker Tobacco type: cigarettes Second hand tobacco smoke exposure: Yes Smoking end date: 10/15/04 Alcohol intake: current Drinks per week: 15 Substance use: never Substance use type: does not use Gender identity (if verbalized by the patient): Male Spiritual care concerns: No Exam Narrative: GENERAL: Well-appearing, well-nourished, and in no acute distress. HEAD: Normocephalic, atraumatic. EYES: PERRLA and EOMI. ENT: Nares clear, no rhinorrhea or epistaxis. Mucous membranes moist. Oropharynx without tonsillar hypertrophy exudate or other lesions. Bilateral TMs pearly burr nonbulging NECK: Supple. No adenopathy or masses. No carotid bruits or JVD CHEST: Bilateral inspiratory and expiratory wheezing. Cough present on exam. HEART: Regular rate and rhythm. No murmur heard. Normal peripheral pulses. ABDOMEN: Soft, nontender, nondistended, normal active bowel sounds. EXTREMITIES: Normal range of motion. No edema. SKIN: Warm
[2021-10-09 10:54] LABS: Atypical Lymphocytes Present; Platelet Estimate Adequate (Adequate)
[2021-10-09] MEDS: ALBUTEROL SULFATE (*SP) AEROSOL 1 PUFF 2 PUFF INHALATION (11:05)
[2021-10-09] MEDS: KETOROLAC 30 MG/ML VIAL (*BKC) IV PUSH (11:08)
[2021-10-09 11:23] LABS: INR 0.9; Prothrombin Time 12.4 Seconds (11.1-14.7)
[2021-10-09 11:28] LABS: Troponin I < 0.012 ng/mL (0.000-0.034)
[2021-10-09 11:40] LABS: Partial Thromboplastin Time < 20.0 SECONDS (22.3-36.8)
[2021-10-10 19:04] LABS: SARS-CoV-2 RNA PCR Negative
== END 2021-10-09 14:45 | disposition home or self-care (01) ==
PROVIDERS: Emergency Medicine; Emergency Provider Nurse Practitioner; PCP Family Medicine
DX: J44.1 Chronic obstructive pulmonary disease with (acute) exacerbation (principal); Z20.822 Contact with and (suspected) exposure to COVID-19; I25.10 Atherosclerotic heart disease of native coronary artery without angina pectoris; G47.33 Obstructive sleep apnea (adult) (pediatric); I25.2 Old myocardial infarction; I11.9 Hypertensive heart disease without heart failure; Z95.1 Presence of aortocoronary bypass graft; Z87.891 Personal history of nicotine dependence
CPT/HCPCS: 36415; 36600; 71045; 71275; 80053; 82375; 82805; 83050; 84484; 85025; 85055; 85610; 85730; 87081; 87804; 87880; 93005; 96374; 96375; 99284; A9270; C9803; J1100; J1885; Q9967; U0003; U0005

== ENCOUNTER 2021-11-30 07:09 | Outpatient (CLI) | payer OTHER, SELFPAY ==
[2021-11-30 08:12] LABS: Cholesterol 144 mg/dL (0-200); HDL Direct 60 mg/dL; Hemoglobin A1C 4.9 % (<5.7); Triglycerides 169 mg/dL (<150)
[2021-11-30 08:24] LABS: LDL Cholesterol Direct 58 mg/dL
[2021-11-30 08:46] LABS: Prostate Specific Antigen 0.4 ng/mL (< OR = 4.0)
== END 2021-11-30 07:10 | disposition home or self-care (01) ==
PROVIDERS: PCP Family Medicine; Visit Provider Family Medicine
DX: Z12.5 Encounter for screening for malignant neoplasm of prostate (principal); R73.01 Impaired fasting glucose; E78.1 Pure hyperglyceridemia; R53.83 Other fatigue; Z00.00 Encounter for general adult medical examination without abnormal findings
CPT/HCPCS: 36415; 80061; 83036; 84153; 84443

== ENCOUNTER 2022-03-26 05:36 | Observation (INO) | payer OTHER, SELFPAY ==
[2022-03-26] VITALS (49 sets, daily range): BP systolic 108–133; BP diastolic 56–86; PULSE 66–84; RESP 10–18; TEMP 36.3–37.1; O2SAT 96–100
--- NOTE | ~2022-03-26 | XR_ITS ---
XR chest 2V 03/26/2022 06:30 Indication: Chest pain Procedure: 2 views of the chest Comparison: Comparison to multiple prior studies sequentially, with oldest reviewed study dated 05/09. Findings: Status post median sternotomy for CABG. Heart size normal. No focal air space disease, pulm onary edema, pleural effusion or suspected pneumothorax. Impression: 1: No acute cardiopulmonary disease. Reviewed, dictated and finalized at location A. Impression: 1: No acute cardiopulmonary disease.
--- NOTE | ~2022-03-26 | NM_ITS ---
EXAMINATION: NM zeeshan stress w perfusion DATE: 03/27/2022 12:24 INDICATION: Coronary artery disease. Chest pain. TECHNIQUE: Rest images were obtained following intravenous administration of 9.3 mCi Tc99m tetrofosmi n (Myoview). The patient was infused intravenously with Lexiscan (Regadenoson). Then, 29.2 mCi Tc99m tetrofosmin (Myoview) was administered intravenously, and stress images were obtained. Data was recon structed into short axis and horizontal and vertical long axis SPECT images. Gated SPECT images were also obtained. COMPARISON: None. FINDINGS: There is no definite reversible or fixed perfusion abnormality to suggest ischemia or infar ction. There is normal left ventricular chamber size, wall motion and ejection fraction. Left ventr icular ejection fraction measures 62%. IMPRESSION: 1. Normal myocardial perfusion at rest and during stress. 2. Left ventricular ejection fraction measuring 62%. Reviewed, dictated and finalized at location A.
--- NOTE | 2022-03-26 05:38 | ECG_ITS ---
Measurements Intervals [place] Rate: 77 P: -7 [place]: 182 QRS: -63 QRSD: 109 T: 23 QT: 397 QTc: 452 Interpretive Statements SINUS RHYTHM WITH SINUS ARRHYTHMIA LEFT AXIS DEVIATION [QRS AXIS < -30] INCOMPLETE RIGHT BUNDLE BRANCH BLOCK [90+ ms QRS DURATION, TERMINAL R IN V1/V2, 40+ ms S IN I/aVL/V4/V5/V6] NONSPECIFIC ST AND T-WAVE ABNORMALITY ABNORMAL ECG Electronically Signed On 03-26-2022 11:08:06 CDT by Dima Gracia M.D.
[2022-03-26] MEDS: ASPIRIN 81 MG CHEWABLE TABLET 324 MG PO (05:56)
[2022-03-26] MEDS: NITROGLYCERIN SL 0.4 MG TABLET SUBLINGUAL (06:01)
--- NOTE | 2022-03-26 06:02 | PC.NURSE ---
1st nitro tab given at 0602, with pain or discomfort at 2/10.
--- NOTE | 2022-03-26 06:03 | ED.CHESTPAIN ---
HPI - Chest Pain General Chief Complaint: Chest Pain Stated Complaint: chest pain Time Seen by Provider: 03/26/22 05:46 Source: patient History of Present Illness HPI narrative: Patient presents with this chest pain. Rectum symptoms started approximately an hour before arrival. Describes pain as a sensation of food stuck in his throat. Reports he has not ate or drink anything for the past several hours. Reports that a similar presentation proxy 1 year ago was diagnosed with a heart attack and was transferred to [facility] for a bypass. 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 Reports he is only taking amlodipine denies any other medications. Reports history of infrequent smoking. Denies any nausea vomiting or diaphoresis. Denies any clear aggravating or alleviating symptoms for his pain. His pain is primarily in his throat and does not radiate anywhere. Related Data Home Medications Medication Instructions Recorded Confirmed amlodipine 03/26/22 Allergies Allergy/AdvReac Type Severity Reaction Status Date / Time No Known Allergies Allergy Verified 03/26/22 05:50 Review of Systems Review of Systems: CONSTITUTIONAL: Denies fever, chills, or sweats. EYES: Denies visual changes, redness, or discharge. ENT: Denies rhinorrhea, congestion, sore throat, or otalgia. CARDIOVASCULAR: Denies palpitations, or edema. RESPIRATORY: Denies cough or dyspnea. GASTROINTESTINAL: Denies abdominal pain, nausea, vomiting, or diarrhea. GENITOURINARY: Denies dysuria or hematuria. SKIN: Denies rash or itching. MUSCULOSKELETAL: Denies back pain, joint pain, or myalgia. NEUROLOGIC: Denies headache, numbness, dizziness, or weakness. PSYCHIATRIC: Denies anxiety or depression. All systems reviewed & are unremarkable except as noted in HPI and below [facility] Past Medical History Medical History CAD (coronary artery disease) ANITA (generalized anxiety disorder) HTN (hypertension) Hyperglyceridemia Hypertension with heart disease IFG (impaired fasting glucose) Intermittent asthma [place] (myocardial infarction) KIMI (obstructive sleep apnea) Surgical History Surgical History History of bunionectomy History of coronary artery bypass graft x 2 History of hemorrhoidectomy Family History Family History Other Unknown family medical history Social History Social History Smoking packs per day: 1 Smoking cigarettes per day: 20.0 Years smoked: 30 Smoking pack-years: 30.00 Smoking status: Former smoker Tobacco type: cigarettes Second hand tobacco smoke exposure: Yes Smoking end date: 10/15/04 Alcohol intake: current Drinks per week: 15 Substance use: never Substance use type: does not use Gender identity (if verbalized by the patient): Male Spiritual care concerns: No Exam Narrative: GENERAL: Well-appearing, well-nourished, and in no acute distress. HEAD: Normocephalic, atraumatic. EYES: PERRLA and EOMI. ENT: Nares clear, no rhinorrhea or epistaxis. Mucous membranes moist. NECK: Supple. No masses. No JVD CHEST: Clear to auscultation. No respiratory distress. No wheezes rales or rhonchi HEART: Regular rate and rhythm. No murmur heard. Normal peripheral pulses. ABDOMEN: Soft, nontender, nondistended, normal active bowel sounds. EXTREMITIES: Normal range of motion. No edema. SKIN: Warm, dry, no rash. NEURO: No focal deficits. Alert and oriented x3. PSYCH: Normal mood and affect. Course Reevaluation(s) Reevaluation #1: Patient had some response to nitro. Given this similar presentation to last time patient does appear to be high risk for recurrent stenosis. Patient also has not follow-up since [facility]
[2022-03-26 06:07] LABS: Basophils Absolute Auto 0.1 K/mm3 (0.0-0.1); Basophils Percent Auto 1.4 % (0.2-1.2); Eosinophils Absolute Auto 0.2 K/mm3 (0-0.3); Hematocrit 42.2 % (42.0-52.0); Hemoglobin 13.7 g/dL (14.0-18.0); Immature Granulocyte Absolute 0.04 K/mm3 (0.00-0.031); Immature Granulocyte Percent A 0.6 % (0-0.5); Lymphocytes Absolute Auto 2.76 K/mm3 (0.9-3.2); Lymphocytes Percent Auto 38.8 % (18.3-44.2); Mean Corpuscular HGB Conc 32.5 g/dl (32-36); Mean Corpuscular Hemoglobin 31.3 pg (26-34); Mean Corpuscular Volume 96.3 fl (80-100); Mean Platelet Volume 9.6 fl (7.4-10.4); Monocytes Absolute Auto 0.6 K/mm3 (0.1-0.6); Monocytes Percent Auto 8.6 % (2.6-8.5); Neutrophils Absolute Auto 3.4 K/mm3 (1.3-6.7); Neutrophils Percent Auto 47.6 % (45.5-73.1); Platelet Count Result 189 k/mm3 (150-375); Red Blood Count 4.38 M/mm3 (4.6-6.20); Red Cell Distribution Width 12.9 % (11.5-14.5); White Blood Count 7.1 K/mm3 (4.5-10.0)
--- NOTE | 2022-03-26 06:07 | PC.NURSE ---
No change in pain or discomfort level after 1st nitro tab, 2nd nitro tab given at 0607 for 11/24.
--- NOTE | 2022-03-26 06:12 | PC.NURSE ---
Patient states slight change from a 2/10 to a 1/10. States does not want any more nitro tabs.
[2022-03-26 06:16] LABS: Alanine Aminotransferase 36 U/L (6-50); Albumin Level 4.6 g/dL (3.5-5.1); Alkaline Phosphatase 66 U/L (38-126); Anion Gap 8 mmol/L (8-16); Aspartate Amino Transferase 37 U/L (17-59); Bilirubin,Total 0.9 mg/dL (0.2-1.3); Blood Urea Nitrogen 28 mg/dL (9-20); Calcium 8.5 mg/dL (8.4-10.2); Carbon Dioxide 25 mmol/L (22-30); Chloride 102 mmol/L (98-107); Estimated CRCL calculation 72 ml/min; Estimated Glomerular Filt Rate > 60; Glucose 94 mg/dL (65-110); Lipase 34 U/L (23-300); Potassium 4.2 mmol/L (3.4-5.0); Sodium 135 mmol/L (137-145)
[2022-03-26 06:22] LABS: Partial Thromboplastin Time 27.5 SECONDS (22.3-36.8); Prothrombin Time 12.9 Seconds (11.1-14.7)
--- NOTE | 2022-03-26 06:25 | PC.NURSE ---
Patient taken to xray via stretcher.
[2022-03-26 06:28] LABS: Troponin I < 0.012 ng/mL (0.000-0.034)
[2022-03-26] MEDS: TICAGRELOR 90 MG TABLET 60 MG PO (06:56)
[2022-03-26 08:39] LABS: Troponin I < 0.012 ng/mL (0.000-0.034)
[2022-03-26] MEDS: SODIUM CHLORIDE 0.9% IV 1,000 ML 125 ML IV CONT ×2 (10:57→16:07)
--- NOTE | 2022-03-26 11:55 | PM.CNCAR ---
Assessment and Plan Assessment and plan (1) Chest pain: Qualifiers: Chest pain type: unspecified Qualified Code(s): R07.9 - Chest pain, unspecified Code(s): R07.9 - Chest pain, unspecified Status: Acute Assessment and Plan: His throat pain is similar to his presentation at the time his myocardial infarction. Will continue rule out myocardial infarction with serial cardiac enzymes. He may eat today but I will keep him NPO after midnight for Lexiscan myocardial perfusion study tomorrow. Enoxaparin 1 milligram/kilogram subQ x1 now. Aspirin 81 mg p.o. daily. Continue statin and SARAH-inhibitor. (2) Emphysema lung: Code(s): J43.9 - Emphysema, unspecified Status: Acute (3) KIMI (obstructive sleep apnea): Code(s): G47.33 - Obstructive sleep apnea (adult) (pediatric) Status: Acute (4) CAD (coronary artery disease): Code(s): I25.10 - Atherosclerotic heart disease of [place] coronary artery without angina pectoris Status: Acute Assessment and Plan: As detailed above. History of 2 vessel CABG in 2019 (5) History of coronary artery bypass graft x 2: Code(s): Z95.1 - Presence of aortocoronary bypass graft Status: Acute (6) Hypertension with heart disease: Code(s): I11.9 - Hypertensive heart disease without heart failure Status: Acute Assessment and Plan: Continue lisinopril (7) Hyperlipidemia LDL goal <70: Code(s): E78.5 - Hyperlipidemia, unspecified Status: Acute Assessment and Plan: Continue atorvastatin History of Present Illness History of Present Illness Consult date/time: 03/26/22 11:55 Reason For Visit: chest pain Narrative: Date of service 03/26/2022 Reason for Consultation neck pain, CAD Requesting provider: Dr. Powell History patient a 62-year-old male with known history of CAD. Two thousand twenty he had similar presentation that resulted and a catheterization and eventually transfer to [facility] for a bypass surgery. Last night he was at the computer and felt a sensation of food being stuck in his throat. This is the same presentation that he had at the time of his myocardial infarction 2 years ago. He denies any exertional chest pain, syncope, presyncope, paroxysmal nocturnal dyspnea, orthopnea, edema or palpitations. His symptoms lasted approximately 1 hour and spontaneously resolved. He does have some baseline shortness of breath related emphysema. Troponins are negative his EKG shows no acute ST or T-wave abnormalities. Review of Systems Review of Systems: All systems reviewed & are unremarkable except as noted in HPI and below Constitutional: Constitutional: Denies body ache(s) Eyes: Eyes: Denies blurry vision ENT: Denies Normal hearing present Cardiovascular: Cardiovascular: Denies chest pain Respiratory: Respiratory: Reports dyspnea Gastrointestinal: Gastrointestinal: Denies abdominal pain Genitourinary: Genitourinary: Denies hematuria Musculoskeletal: Musculoskeletal: Denies back pain Integumentary/Breasts: Skin/Breast: Denies breast pain Neurologic: Denies abnormal gait Psychiatric: Psychiatric: Denies anxiety Endocrine: Endocrine: Denies excessive sweating Hematologic/Lymphatic: Hematologic/Lymphatic: Denies easy bleeding Allergic/Immunologic: Allergic/Immunologic: Denies GI upset with certain foods PMFSH Past Medical History Medical History (Updated 03/26/22 @ 11:59 by Dima Gracia MD) CAD (coronary artery disease) ANITA (generalized anxiety disorder) HTN (hypertension) Hyperglyceridemia Hyperlipidemia LDL goal <70 Hypertension with heart disease IFG (impaired fasting glucose) Intermittent asthma [place] (myocardial infarction) KIMI (obstructive sleep apnea) Surgical History Surgical History History of bunionectomy History of coronary artery bypass graft x 2 History of hem
[2022-03-26 12:21] LABS: Troponin I < 0.012 ng/mL (0.000-0.034)
[2022-03-26] MEDS: ENOXAPARIN 100 MG/ML SYRINGE SUB-Q (12:58)
[2022-03-26] MEDS: lisinopriL 10 MG TABLET PO (12:59)
--- NOTE | 2022-03-26 15:37 | ADMGEN ---
This patient, Rafael Arora, was admitted to IMU Room 232-01 at 1425. Patient/family oriented to hospital policies and general routines including ID bracelet, bed and alarms, visiting hours, pain management, procedures, bathroom and other care routines, personal items, smoking policy, room service/diet, and visiting hours. Information on how to activate the Rapid Response Team has been discussed. Patient/Family are encouraged to report perceived risks to care and to ask questions if they do not understand what they are told or what they should do.
--- NOTE | 2022-03-26 16:02 | PM.IMHP ---
H&P: [facility] History of Present Illness Date/Time: 03/26/22 16:02 Chief Complaint: chest pain Narrative: ED-HPI Patient presents with this chest pain.? Rectum symptoms started approximately an hour before arrival.? Describes pain as a sensation of food stuck in his throat.? Reports he has not ate or drink anything for the past several hours.? Reports that a similar presentation proxy 1 year ago was diagnosed with a heart attack and was transferred to [facility] for a bypass.? 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 Reports he is only taking amlodipine denies any other medications.? Reports history of infrequent smoking.? Denies any nausea vomiting or diaphoresis.? Denies any clear aggravating or alleviating symptoms for his pain.? His pain is primarily in his throat and does not radiate anywhere. currently patient states the chest pain has improved, is 3 sets of cardiac enzymes and and there are no acute changes on EKG patient is seen by Cardiology recommending Lexiscan to further evaluate, patient is scheduled for the test tomorrow. and further recommendation to follow patient admitted observation status Review of Systems Review of Systems: All systems reviewed & are unremarkable except as noted in HPI and below PMFSH Past Medical History Medical History (Updated 03/26/22 @ 11:59 by Diam Gracia MD) CAD (coronary artery disease) ANITA (generalized anxiety disorder) HTN (hypertension) Hyperglyceridemia Hyperlipidemia LDL goal <70 Hypertension with heart disease IFG (impaired fasting glucose) Intermittent asthma [place] (myocardial infarction) KIMI (obstructive sleep apnea) Surgical History Surgical History History of bunionectomy History of coronary artery bypass graft x 2 History of hemorrhoidectomy Family History Family History Other Unknown family medical history Social History Social History Smoking packs per day: 1 Smoking cigarettes per day: 20.0 Years smoked: 30 Smoking pack-years: 30.00 Smoking status: Former smoker Tobacco type: cigarettes Second hand tobacco smoke exposure: Yes Smoking end date: 10/15/04 Alcohol intake: current Drinks per week: 15 Substance use: current Substance use type: marijuana Gender identity (if verbalized by the patient): Male Spiritual care concerns: No Meds Home Medications and Allergies Home Medications Medication Instructions Recorded Confirmed Type atorvastatin 40 mg tablet (Lipitor) See Rx Instructions .Route .COMPLEX 03/26/22 03/26/22 History lisinopril 10 mg tablet (Zestril) See Rx Instructions .Route .COMPLEX 03/26/22 03/26/22 History paroxetine HCl 20 mg tablet (Paxil) See Rx Instructions .Route .COMPLEX 03/26/22 03/26/22 History Allergies Allergy/AdvReac Type Severity Reaction Status Date / Time No Known Allergies Allergy Verified 03/26/22 05:50 Vital Signs Vital Signs - 24 hr 03/26/22 05:46 03/26/22 06:08 03/26/22 05:45 Temperature 98.7 F Pulse Rate 75 76 Respiratory Rate 15 15 Blood Pressure 129/81 108/68 Pulse Oximetry 100 100 Oxygen Delivery Room Air 03/26/22 05:46 03/26/22 06:00 03/26/22 06:01 Temperature Pulse Rate 78 77 70 Respiratory Rate 15 16 16 Blood Pressure 129/81 124/86 Pulse Oximetry 100 100 100 Oxygen Delivery 03/26/22 06:17 03/26/22 06:30 03/26/22 06:31 Temperature Pulse Rate 81 72 71 Respiratory Rate 13 14 13 Blood Pressure 119/75 Pulse Oximetry 97 97 98 Oxygen Delivery 03/26/22 06:45 03/26/22 07:00 03/26/22 07:15 Temperature Pulse Rate 74 68 71 Respiratory Rate 12 14 10 L Blood Pressure Pulse Oximetry 99 98 100 Oxygen Delivery 03/26/22 07:16 03/26/22 07:17 03/26/22 07:30 Temperature Pulse Rate 70 69 7
[2022-03-26] MEDS: ATORVASTATIN 40 MG TABLET BY MOUTH (16:07)
[2022-03-27] VITALS (10 sets, daily range): BP systolic 114–136; BP diastolic 75–81; PULSE 67–89; RESP 16–18; TEMP 36.6–37.3; O2SAT 98–99
[2022-03-27] MEDS: SODIUM CHLORIDE 0.9% IV 1,000 ML 125 ML IV CONT (01:31)
--- NOTE | 2022-03-27 08:02 | EST_ITS ---
Patient Info Name: Rafael Arora Age: 62 years : 1960 Gender: Male Ht: 73 in Wt: 234 lbs BSA: 2.36 m2 HR: 68 bpm BP: 125 / 76 mmHg Heart Rhythm: Sinus Rhythm Exam Date: 03/27/2022 11:28 AM Exam Location: [facility] Stress Patient Status: Outpatient Admit Date: 03/26/2022 Staff Ordering Physician: Dima Gracia MD Attending Provider: Soledad Lindsey DO Exercise Technologist: Joana Street CT Exercise Physician: Dima Gracia MD Exam Type: CA stress zeeshan w NM Study Info Indications R07.9 - Chest pain, unspecified A regadenoson stress test was performed. Summary 1. Please correlate with nuclear medicine images, reported separately. 2. No abnormal ST-T wave changes with lexiscan. Protocol: Lexiscan Stress ECG Details Stage: REST Duration (min): 1 min : 7 sec HR (bpm): 69 SBP (mmHg): 125 DBP (mmHg): 76 Stage: REST Duration (min): 11 min : 5 sec HR (bpm): 71 SBP (mmHg): 125 DBP (mmHg): 76 Stage: STAGE 1 Duration (min): 0 min : 59 sec HR (bpm): 88 SBP (mmHg): 124 DBP (mmHg): 93 Stage: RECOVERY Duration (min): 1 min : 0 sec HR (bpm): 90 SBP (mmHg): 124 DBP (mmHg): 93 Stage: RECOVERY Duration (min): 2 min : 0 sec HR (bpm): 83 SBP (mmHg): 124 DBP (mmHg): 93 Stage: RECOVERY Duration (min): 3 min : 0 sec HR (bpm): 80 SBP (mmHg): 143 DBP (mmHg): 84 Stage: RECOVERY Duration (min): 3 min : 7 sec HR (bpm): 79 SBP (mmHg): 143 DBP (mmHg): 84 Rest HR: 71 bpm Peak HR: 97 bpm Rest Sys BP: 125 mmHg Peak Sys BP: 143 mmHg Max Pred HR: 158 bpm % Max Pred HR: 61 % Target HR: 134 bpm Max RPP: 13,871 bpm*mmHg BP Response: Normal blood pressure response Termination Reason: Completed protocol Cardiac Symptoms: None Total Time: 1 min : 0 sec Rest Morgan BP: 76 mmHg Peak Morgan BP: 84 mmHg Total Dose: 0.4 mg Resting ECG Normal sinus rhythm. LAFB. Stress ECG No abnormal ST/T wave changes with exercise. Arrhythmias None. Report Signatures
[2022-03-27] MEDS: ASPIRIN 81 MG ENTERIC TABLET PO (08:52)
[2022-03-27] MEDS: lisinopriL 10 MG TABLET BY MOUTH (08:52)
[2022-03-27] MEDS: PARoxetine 20 MG TABLET BY MOUTH (08:52)
[2022-03-27] MEDS: ATORVASTATIN 40 MG TABLET BY MOUTH (08:52)
--- NOTE | 2022-03-27 11:49 | PM.PNCARD ---
Progress Note: A&P Assessment and Plan (1) Chest pain: Qualifiers: Chest pain type: unspecified Qualified Code(s): R07.9 - Chest pain, unspecified Code(s): R07.9 - Chest pain, unspecified Status: Acute Assessment and Plan: His throat pain is similar to his presentation at the time his myocardial infarction. Continue Aspirin 81 mg p.o. daily. Continue statin and SARAH-inhibitor. Will await results of his perfusion study. If abnormal, cardiac catheterization. If normal, okay for discharge but he does need follow-up with Cardiology. He formally saw Dr. Oneal. He also should be discharged home with p.r.n. nitroglycerin 0.4 mg p.r.n. chest pain regardless of results of stress test. Follow up with Dr. Mansfield in 1-2 weeks (2) Emphysema lung: Code(s): J43.9 - Emphysema, unspecified Status: Acute (3) KIMI (obstructive sleep apnea): Code(s): G47.33 - Obstructive sleep apnea (adult) (pediatric) Status: Acute (4) CAD (coronary artery disease): Code(s): I25.10 - Atherosclerotic heart disease of [place] coronary artery without angina pectoris Status: Acute Assessment and Plan: As detailed above. History of 2 vessel CABG in 2020 (5) History of coronary artery bypass graft x 2: Code(s): Z95.1 - Presence of aortocoronary bypass graft Status: Acute (6) Hypertension with heart disease: Code(s): I11.9 - Hypertensive heart disease without heart failure Status: Acute Assessment and Plan: Continue lisinopril (7) Hyperlipidemia LDL goal <70: Code(s): E78.5 - Hyperlipidemia, unspecified Status: Acute Assessment and Plan: Continue atorvastatin Subjective Date/time seen: 03/27/22 11:49 62-year-old admitted for throat pain which was his anginal equivalent past. Date of service 03/27/2022: He has ruled out myocardial infarction. He seen in the stress lab. He currently denies any chest pain, throat pain, shortness of breath. Review of Systems Review of Systems: All systems reviewed & are unremarkable except as noted in HPI and below Constitutional: Constitutional: Denies body ache(s) and Denies excessive sweating Eyes: Eyes: Denies blurry vision ENT: Denies Normal hearing present Cardiovascular: Cardiovascular: Denies chest pain and Reports dyspnea Respiratory: Respiratory: Reports dyspnea Gastrointestinal: Gastrointestinal: Denies abdominal pain Genitourinary: Genitourinary: Denies hematuria Musculoskeletal: Musculoskeletal: Denies abnormal gait and Denies back pain Integumentary/Breasts: Skin/Breast: Denies breast pain Neurologic: Denies Normal hearing present and Denies abnormal gait Psychiatric: Psychiatric: Denies anxiety Endocrine: Endocrine: Denies excessive sweating Hematologic/Lymphatic: Hematologic/Lymphatic: Denies easy bleeding Allergic/Immunologic: Allergic/Immunologic: Denies GI upset with certain foods Exam Narrative: Awake alert appears stated age Const: General: comfortable; No in distress HENMT: General nose exam: Normal nares present Eyes: Sclera: sclerae normal Neck: Neck: supple and No no JVD Chest: Other: No reproducible chest wall pain to palpation Resp: Effort & Inspection: normal respiratory effort Auscultation: diminished lung sounds Cardio: Rate: regular rate Rhythm: regular rhythm Heart sounds: no murmurs Skin: General skin exam: normal color Neuro: Cranial nerves: No Normal hearing present Speech: normal speech Sensory Exam: normal sensation Extrem: General: normal to inspection Psych: Mental Status: mental status grossly normal Objective Data Vital Signs Vital Signs: Vital Signs - 24 hr 03/26/22 12:12 03/26/22 12:15 03/26/22 13:30 Temperature Pulse Rate 70 70 Respiratory Rate 11 L 13 Blood Pressure 112/56 L Pulse Oximetry 97 98 Oxygen Delivery 03/26/22 12:30 03/26/22 12:48 03/26/22 13:00 Temperatu
--- NOTE | 2022-03-27 13:15 | PM.DS ---
DS: Admitting Diagnosis Discharge Date 03/27/2022 Admitting Diagnosis chest pain DS: Discharge Diagnosis Discharge Diagnosis (1) Chest pain: Qualifiers: Chest pain type: unspecified Qualified Code(s): R07.9 - Chest pain, unspecified Code(s): R07.9 - Chest pain, unspecified Status: Acute Assessment and Plan: ED-HPI Patient presents with this chest pain.? Rectum symptoms started approximately an hour before arrival.? Describes pain as a sensation of food stuck in his throat.? Reports he has not ate or drink anything for the past several hours.? Reports that a similar presentation proxy 1 year ago was diagnosed with a heart attack and was transferred to [facility] for a bypass.? 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 Reports he is only taking amlodipine denies any other medications.? Reports history of infrequent smoking.? Denies any nausea vomiting or diaphoresis.? Denies any clear aggravating or alleviating symptoms for his pain.? His pain is primarily in his throat and does not radiate anywhere. currently patient states the chest pain has improved, is 3 sets of cardiac enzymes and and there are no acute changes on EKG patient is seen by Cardiology recommending Lexiscan to further evaluate, patient is scheduled for the test tomorrow. and further recommendation to follow (2) Emphysema lung: Code(s): J43.9 - Emphysema, unspecified Status: Acute Assessment and Plan: remains clinically stable continue to monitor (3) History of coronary artery bypass graft x 2: Code(s): Z95.1 - Presence of aortocoronary bypass graft Status: Acute Assessment and Plan: patient is a risk for coronary artery disease, now with chest pain, patient will have Lexiscan test tomorrow and further recommendation to follow (4) Hypertension with heart disease: Code(s): I11.9 - Hypertensive heart disease without heart failure Status: Acute Assessment and Plan: will continue home regimen DS: Summary Hospital Course Reason for hospitalization: ED-HPI?Patient presents with this chest pain.? Rectum symptoms started approximately an hour before arrival.? Describes pain as a sensation of food stuck in his throat.? Reports he has not ate or drink anything for the past several hours.? Reports that a similar presentation proxy 1 year ago was diagnosed with a heart attack and was transferred to [facility] for a bypass.? 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 Reports he is only taking amlodipine denies any other medications.? Reports history of infrequent smoking.? Denies any nausea vomiting or diaphoresis.? Denies any clear aggravating or alleviating symptoms for his pain.? His pain is primarily in his throat and does not radiate anywhere. ?currently patient states the chest pain has improved, is 3 sets of cardiac enzymes and and there are no acute changes on EKG patient is seen by Cardiology recommending Lexiscan to further evaluate,? patient is scheduled for the test tomorrow.? and further recommendation to follow Hospital Course: currently patient states the chest pain has improved, is 3 sets of cardiac enzymes and and there are no acute changes on EKG patient is seen by Cardiology recommending Lexiscan to further evaluate,? patient is scheduled for the test tomorrow.? and further recommendation to follow Patient remains clinically stable had a Lexiscan which is normal did not show any ischemic event, seen by Cardiology clinically stable will discharge the patient to Time Spent with Patient Time attestation: Total time spent providing and/or coordinating discharge services: Exam Narrative: Patient is comfortable, NAD HEENT: eyes are clear and none icteric LUNGS:CTA HEART: RR S1S2 ABD: BS+, Soft and nontender Lower extremities: no edema SKIN: nonjaundiced Neuro: gr
== END 2022-03-27 14:37 | disposition home or self-care (01) ==
LOC: ANHED 06:53 → ANHIMU 14:18
PROVIDERS: Admitting Provider Internal Medicine; Emergency Provider Emergency Medicine; PCP Family Medicine; Visit Provider Family Medicine
DX: R07.9 Chest pain, unspecified (principal); J43.9 Emphysema, unspecified; I25.10 Atherosclerotic heart disease of native coronary artery without angina pectoris; I11.9 Hypertensive heart disease without heart failure; G47.33 Obstructive sleep apnea (adult) (pediatric); I25.2 Old myocardial infarction; Z87.891 Personal history of nicotine dependence; Z95.1 Presence of aortocoronary bypass graft; E78.5 Hyperlipidemia, unspecified
CPT/HCPCS: 36415; 71046; 78452; 80053; 83690; 84484; 85025; 85610; 85730; 93005; 93017; 96360; 96361; 96372; 99285; A9270; A9502; G0378; J1650; J2785; J7030

== ENCOUNTER 2022-09-16 07:34 | Outpatient (CLI) | payer OTHER, SELFPAY ==
--- NOTE | 2022-09-16 07:51 | ECHO_ITS ---
Patient Info Name: Rafael Arora Age: 62 years : 1960 Gender: Male Ht: 73 in Wt: 230 lbs BSA: 2.34 m2 HR: 70 bpm BP: 130 / 70 mmHg Technical Quality: Poor Exam Date: 09/16/2022 9:07 AM Exam Location: [facility] Patient Status: Outpatient Admit Date: 09/16/2022 Staff Ordering Physician: Lobo Machado DO Capping Machine Operator: Arielle Valdes RDCS Attending Provider: Lobo Machado DO Referring Physician: Carter FRAGOSO; Exam Type: CA echo dop color flow w con Study Info Indications - ARTHEROSCLEROSIS OF CORONARY ARTERY BYPASS GRAFT Complete two-dimensional, color flow and Doppler transthoracic echocardiogram is performed with contrast to opacify the left ventricle and to improve the deliniation of the left ventricle endocardial borders. Contrast/Agitated Saline Contrast/Ag. Saline: Definity Amount: 2.00 ml Administered By: Arielle Valdes [facility] Christopher IV Access: Antecubital Space Site Condition: IV removed Reason for Poor Study: patient body habitus Summary 1. Left ventricular chamber dimension is normal. 2. Definity contrast administered improved wall motion interpretation. 3. Left ventricular systolic function is normal, estimated at 55-60%. 4. The left ventricular diastolic function is grade I diastolic dysfunction. 5. E/e' 6 is not elevated. 6. Left atrial chamber dimension is moderately enlarged. 7. Right atrial chamber dimension is mildly enlarged. 8. The mitral valve has mildly calcified annulus. 9. There is trace mitral valve regurgitation. 10. There is trace tricuspid valve regurgitation. 11. No pulmonary hypertension, estimated pulmonary arterial systolic pressure is 31 mmHg. 12. There is trace pulmonic regurgitation. Left Ventricle E/e' 6 is not elevated. Definity contrast administered improved wall motion interpretation. Left ventricular chamber dimension is normal. Left ventricular systolic function is normal, estimated at 55-60%. The left ventricular diastolic function is grade I diastolic dysfunction. Right Ventricle Right ventricular chamber dimension is normal. Right ventricular systolic function is normal. Left Atria Left atrial chamber dimension is moderately enlarged. Right Atria Right atrial chamber dimension is mildly enlarged. Aortic Valve The aortic valve is trileaflet. There is no aortic valve stenosis. There is no aortic valve regurgitation. Pulmonic Valve There is trace pulmonic regurgitation. Mitral Valve The mitral valve has mildly calcified annulus. There is no mitral valve stenosis. There is trace mitral valve regurgitation. Tricuspid Valve There is trace tricuspid valve regurgitation. No pulmonary hypertension, estimated pulmonary arterial systolic pressure is 31 mmHg. Pericardium/Pleural There is no pericardial effusion. Inferior Vena Cava Normal inferior vena cava with >50% collapse upon inspiration consistent with normal right atrial pressure, 5 mmHg. Aorta The aortic root size at the sinus of Valsalva is normal. Left Ventricular Outflow Tract Name Value Normal LVOT 2D LVOT Diameter 2.09 cm LVOT Doppler
[2022-09-16] MEDS: PERFLUTREN LIPID MICROSPHERES 1.5 ML VIAL DILUTED TO 10 ML TOTAL VOLUME IV PUSH (09:45)
== END 2022-09-16 07:35 | disposition home or self-care (01) ==
LOC: ANHCARD 07:35
PROVIDERS: PCP Family Medicine; Visit Provider Internal Medicine Cardiovascular Disease
DX: I25.810 Atherosclerosis of coronary artery bypass graft(s) without angina pectoris (principal)
CPT/HCPCS: C8929; Q9957

== ENCOUNTER 2022-11-01 14:52 | Outpatient (CLI) | payer OTHER, SELFPAY ==
--- NOTE | ~2022-11-01 | CT_ITS ---
EXAMINATION:CT lung screening DATE: 11/01/2022 15:09 INDICATION: Lung cancer screening. Smoker who quit 14 years ago with 60 pack year history. TECHNIQUE: Computed tomography (CT) of the chest was performed without intravenous contrast. Automate d exposure control and iterative reconstruction technique were employed. The dose-length product (DLP ) was 212.78 mGy-cm. COMPARISON: Chest CT 10/09/2021 FINDINGS: There is mild emphysema. There is mild atelectasis bilaterally. There are chronic periphera l airspace opacities and septal thickening in basilar right lower lobe. There is mild peripheral scar ring in left upper lobe anteriorly. No pleural effusion. The heart size is normal. There are changes of coronary artery bypass grafting. No pericardial effusion. Calcifications in the spleen are consist ent with old granulomatous disease. There is mild thoracic spondylosis. IMPRESSION: 1. Lung-RADS category 2: Benign appearance or behavior. Continue annual screening with noncontrast lo w-dose chest CT in 12 months. Reviewed, dictated and finalized at location A. [employer] IMPRESSION: 1. Lung-RADS category 2: Benign appearance or behavior. Continue annual screeni ng with noncontrast low-dose chest CT in 12 months.
== END 2022-11-01 14:53 | disposition home or self-care (01) ==
LOC: ANHIMG 14:54
PROVIDERS: PCP Family Medicine; Visit Provider Family Medicine
DX: Z12.2 Encounter for screening for malignant neoplasm of respiratory organs (principal); Z87.891 Personal history of nicotine dependence
CPT/HCPCS: 71271

== ENCOUNTER 2023-04-04 07:13 | Outpatient (CLI) | payer OTHER, SELFPAY ==
[2023-04-04 07:52] LABS: Hematocrit 41.6 % (42.0-52.0); Hemoglobin 13.3 g/dL (14.0-18.0); Mean Corpuscular Hemoglobin 31.1 pg (26-34); Mean Corpuscular Volume 97.2 fl (80-100); Mean Platelet Volume 9.8 fl (7.4-10.4); Platelet Count Result 198 k/mm3 (150-375); Red Blood Count 4.28 M/mm3 (4.6-6.20); Red Cell Distribution Width 12.3 % (11.5-14.5)
[2023-04-04 07:56] LABS: Appearance Urine Clear (Clear); Bilirubin Urine Negative (Negative); Blood Urine Negative (Negative); Color Urine Yellow (Yellow); Glucose Urine UA Negative (Negative); Ketones Urine Negative (Negative); Leukocyte Esterase Ur Negative LEU/UL (NEGATIVE); Nitrate Urine Negative (Negative); Protein Urine Negative (Negative); Specific Grav Ur 1.017 (1.001-1.035); Urobilinogen Urine 0.2 mg/dL (<2.0); pH Urine 5.5 (5.0-9.0)
[2023-04-04 08:05] LABS: Alanine Aminotransferase 32 U/L (6-50); Albumin Level 4.5 g/dL (3.5-5.1); Alkaline Phosphatase 55 U/L (38-126); Anion Gap 4 mmol/L (8-16); Aspartate Amino Transferase 26 U/L (17-59); Bilirubin,Total 0.6 mg/dL (0.2-1.3); Blood Urea Nitrogen 15 mg/dL (9-20); Calcium 8.8 mg/dL (8.4-10.2); Carbon Dioxide 31 mmol/L (22-30); Chloride 101 mmol/L (98-107); Cholesterol 158 mg/dL (0-200); Estimated Glomerular Filt Rate > 60; Glucose 101 mg/dL (65-110); HDL Direct 66 mg/dL; Potassium 4.2 mmol/L (3.4-5.0); Sodium 136 mmol/L (137-145); Triglycerides 150 mg/dL (<150)
[2023-04-04 08:13] LABS: Hemoglobin A1C 4.9 % (<5.7)
[2023-04-04 08:26] LABS: LDL Cholesterol Direct 73 mg/dL
[2023-04-04 08:35] LABS: Prostate Specific Antigen 0.3 ng/mL (< OR = 4.0)
[2023-04-04 08:51] LABS: Add Urine Microscopic? NO
== END 2023-04-04 07:14 | disposition home or self-care (01) ==
PROVIDERS: PCP Family Medicine; Visit Provider Family Medicine
DX: Z00.00 Encounter for general adult medical examination without abnormal findings (principal); R73.01 Impaired fasting glucose; I11.9 Hypertensive heart disease without heart failure; I25.10 Atherosclerotic heart disease of native coronary artery without angina pectoris; E78.5 Hyperlipidemia, unspecified; R35.1 Nocturia
CPT/HCPCS: 36415; 80053; 80061; 81003; 83036; 84153; 84443; 85027

== ENCOUNTER 2023-10-21 05:10 | Emergency (ER) | payer OTHER, SELFPAY ==
--- NOTE | ~2023-10-21 | XR_ITS ---
XR chest 2V DATE: 10/21/2023 06:45 INDICATION: Shortness of breath, cough. Headache. TECHNIQUE: PA and lateral views COMPARISON: 11/02/2022 CT lung screening 03/26/2022 2 view chest FINDINGS: Status post sternotomy and coronary artery bypass graft surgery. Moderate bilateral pulmonary hyperinflation. No pulmonary infiltrate or consolidation, pleural effusi on or pulmonary vascular congestion or pneumothorax is detected. Normal heart size. No hilar or mediastinal enlargement. Included skeletal structures are unremarkable. IMPRESSION: Status post CABG; no active cardiac pulmonary disease Reviewed, dictated and finalized at location A. CUTTER
--- NOTE | 2023-10-21 05:12 | ECG_ITS ---
Measurements Intervals Shannon Rate: 117 P: 83 IA: 170 QRS: -75 QRSD: 119 T: 93 QT: 334 QTc: 467 Interpretive Statements SINUS TACHYCARDIA LOW QRS VOLTAGE IN PRECORDIAL LEADS INCOMPLETE RIGHT BUNDLE BRANCH BLOCK LEFT ANTERIOR FASCICULAR BLOCK ST-T WAVE ABNORMALITY IN ANTEROLAT/HIGH LAT LEADS- CONSIDER ISCHEMIA BASELINE WANDER- I, AVR, AVL, V4-V6 ABNORMAL ECG COMPARED TO ECG 03/26/2022 05:44:07 SIN[address]CARDIA NOW PRESENT ST-T WAVE ABNORMALITY NOW PRESENT Electronically Signed On 10-21-2023 9:26:35 PRODUCT MERCHANDISER by Lobo Machado D.O.
[2023-10-21 05:13] VITALS: BP 151/89; PULSE 117; RESP 17; TEMP 38.1; O2SAT 97
[2023-10-21 05:25] VITALS: O2SAT 97
[2023-10-21 05:29] LABS: Basophils Absolute Auto 0.1 K/mm3 (0.0-0.1); Basophils Percent Auto 0.7 % (0.2-1.2); Eosinophils Percent Auto 0.4 % (0-4.4); Hematocrit 44.2 % (42.0-52.0); Hemoglobin 14.1 g/dL (14.0-18.0); Immature Granulocyte Absolute 0.03 K/mm3 (0.00-0.031); Immature Granulocyte Percent A 0.3 % (0-0.5); Lymphocytes Absolute Auto 0.85 K/mm3 (0.9-3.2); Lymphocytes Percent Auto 9.4 % (18.3-44.2); Mean Corpuscular HGB Conc 31.9 g/dl (32-36); Mean Corpuscular Hemoglobin 31.1 pg (26-34); Mean Corpuscular Volume 97.6 fl (80-100); Mean Platelet Volume 9.8 fl (7.4-10.4); Monocytes Absolute Auto 0.7 K/mm3 (0.1-0.6); Monocytes Percent Auto 7.8 % (2.6-8.5); Neutrophils Absolute Auto 7.3 K/mm3 (1.3-6.7); Neutrophils Percent Auto 81.4 % (45.5-73.1); Platelet Count Result 192 k/mm3 (150-375); Red Blood Count 4.53 M/mm3 (4.6-6.20); Red Cell Distribution Width 12.5 % (11.5-14.5)
[2023-10-21 05:41] LABS: Alanine Aminotransferase 27 U/L (6-50); Albumin Level 4.8 g/dL (3.5-5.1); Alkaline Phosphatase 64 U/L (38-126); Anion Gap 12 mmol/L (8-16); Aspartate Amino Transferase 27 U/L (17-59); Blood Urea Nitrogen 12 mg/dL (9-20); Calcium 9.5 mg/dL (8.4-10.2); Carbon Dioxide 25 mmol/L (22-30); Chloride 101 mmol/L (98-107); Estimated CRCL calculation 69 ml/min; Estimated Glomerular Filt Rate > 60; Glucose 116 mg/dL (65-110); Potassium 3.7 mmol/L (3.4-5.0); Sodium 138 mmol/L (137-145)
--- NOTE | 2023-10-21 05:54 | ED.GENADULT ---
HPI - General Adult General Chief complaint: Shortness of Breath/Dyspnea Stated complaint: SOB, copd Time Seen by Provider: 10/21/23 05:33 History of Present Illness HPI narrative: Patient is a 63-year-old gentleman who presents emergency department with chief complaint of shortness of breath cough headache fever and generalized malaise for the last 24 hours. The patient reports that he started coughing and has been having coughing fits that he is unable to stop coughing. The patient reports he has history of COPD and reports that he has started wheezing in the last few hours the patient states that he has had fever at home and has been able to break his fever. Patient due does report that he has had multiple family members that have had cough and cold symptoms. The patient reports that he did a at home COVID test that was negative on initial testing. Related Data Allergies Allergy/AdvReac Type Severity Reaction Status Date / Time No Known Allergies Allergy Verified 10/21/23 05:23 Review of Systems Review of Systems: A 10 system review of systems was completed on the patient and is negative except for what is stated in the HPI. Nursing and ancillary documentation was reviewed. [facility] Past Medical History Medical History CAD (coronary artery disease) ANITA (generalized anxiety disorder) HLD (hyperlipidemia) HTN (hypertension) Hyperglyceridemia Hyperlipidemia LDL goal <70 Hypertension with heart disease IFG (impaired fasting glucose) Intermittent asthma Old CA (myocardial infarction) KIMI (obstructive sleep apnea) Surgical History Surgical History History of bunionectomy History of coronary artery bypass graft x 2 History of hemorrhoidectomy Family History Family History Other Unknown family medical history Social History Social History Smoking packs per day: 1 Smoking cigarettes per day: 20.0 Years smoked: 30 Smoking pack-years: 30.00 Smoking status: Former smoker Tobacco type: cigarettes Second hand tobacco smoke exposure: Yes Smoking end date: 10/15/04 Alcohol intake: current Drinks per week: 15 Substance use: current Substance use type: marijuana Living arrangements: with family Occupation/Education: occupation Gender identity (if verbalized by the patient): Male Sexual Orientation (if Verbalized by the Patient): Straight or Heterosexual Spiritual care concerns: No Agree to blood products: Yes Exam Narrative: GENERAL: Well-appearing, well-nourished, and in no acute distress. HEAD: Normocephalic, atraumatic. EYES: PERRLA and EOMI. ENT: Nares clear, no rhinorrhea or epistaxis. Mucous membranes moist. NECK: Supple. CHEST: Scattered wheezes to auscultation. No respiratory distress. HEART: Regular rate and rhythm. No murmur heard. Normal peripheral pulses. ABDOMEN: Soft, nontender, nondistended, normal active bowel sounds. EXTREMITIES: Normal range of motion. No edema. SKIN: Warm, dry, no rash. NEURO: No focal deficits. Alert and oriented x3. PSYCH: Normal mood and affect. Course Vital Signs Vital signs: Vital Signs Temperature 38.1 C H 10/21/23 05:13 Pulse Rate 117 H 10/21/23 05:13 Respiratory Rate 17 10/21/23 05:13 Blood Pressure 151/89 H 10/21/23 05:13 Pulse Oximetry 97 10/21/23 05:13 Oxygen Delivery Room Air 10/21/23 05:13 Temperature 38.1 C H 10/21/23 05:13 Pulse Rate 105 H 10/21/23 06:02 Respiratory Rate 20 10/21/23 06:02 Blood Pressure 151/89 H 10/21/23 05:13 Pulse Oximetry 97 10/21/23 05:25 Oxygen Delivery Room Air 10/21/23 05:25 Medical Decision Making [facility] Narrative Medical decision making narrative: Differential diagnosis includes influenza, COV
[2023-10-21] MEDS: IPRATROPIUM BR 0.02% INH SOLN 0.5 MG/2.5 ML VIAL INHALATION (06:00)
[2023-10-21 06:01] VITALS: PULSE 113; RESP 20
[2023-10-21] MEDS: LEVALBUTEROL NEB 1.25 MG/3 ML INHALATION (06:01)
[2023-10-21 06:02] VITALS: PULSE 105; RESP 20
[2023-10-21] MEDS: SODIUM CHLORIDE 0.9% IV 1,000 ML 999 ML IV CONT (06:02)
[2023-10-21] MEDS: ACETAMINOPHEN 500 MG TABLET 1000 MG PO (06:03)
[2023-10-21 06:10] LABS: Influenza A QL RT-PCR Positive (Negative); Influenza B QL RT-PCR Negative (Negative); RSV RNA, RT-PCR Negative (Negative); SARS-CoV-2 RNA PCR Negative (Negative)
[2023-10-21 06:18] LABS: Lactic Acid Reflex 1.3 mmol/L (0.7-2.0)
[2023-10-21 06:32] LABS: Procalcitonin 0.1 ng/mL
[2023-10-21] MEDS: BENZONATATE 100 MG CAPSULE 200 MG PO (06:52)
[2023-10-21] MEDS: KETOROLAC 15 MG/ML VIAL (*BKC) IV PUSH (06:52)
[2023-10-21 06:54] VITALS: BP 136/77; PULSE 102; RESP 15; TEMP 37.9; O2SAT 94
[2023-10-21 07:10] VITALS: BP 125/76; PULSE 98; RESP 12; O2SAT 94
== END 2023-10-21 07:11 | disposition home or self-care (01) ==
PROVIDERS: Emergency Provider Emergency Medicine; PCP Family Medicine
DX: J10.1 Influenza due to other identified influenza virus with other respiratory manifestations (principal); J44.1 Chronic obstructive pulmonary disease with (acute) exacerbation; I25.10 Atherosclerotic heart disease of native coronary artery without angina pectoris; E78.5 Hyperlipidemia, unspecified; F41.1 Generalized anxiety disorder; E11.9 Type 2 diabetes mellitus without complications; I25.2 Old myocardial infarction; G47.33 Obstructive sleep apnea (adult) (pediatric); J45.20 Mild intermittent asthma, uncomplicated; E78.1 Pure hyperglyceridemia; Z95.1 Presence of aortocoronary bypass graft; F12.90 Cannabis use, unspecified, uncomplicated; Z87.891 Personal history of nicotine dependence; Z79.82 Long term (current) use of aspirin; Z79.51 Long term (current) use of inhaled steroids; Z20.822 Contact with and (suspected) exposure to COVID-19
CPT/HCPCS: 36415; 71046; 80053; 83605; 84145; 85025; 87637; 93005; 94640; 96361; 96374; 96375; 99284; A9270; J1100; J1885; J7030

== ENCOUNTER 2023-11-06 06:34 | Outpatient (CLI) | payer OTHER, SELFPAY ==
[2023-11-06 06:50] LABS: Hematocrit 40.9 % (42.0-52.0); Hemoglobin 13.5 g/dL (14.0-18.0); Mean Corpuscular Hemoglobin 31.3 pg (26-34); Mean Corpuscular Volume 94.9 fl (80-100); Mean Platelet Volume 9.2 fl (7.4-10.4); Platelet Count Result 249 k/mm3 (150-375); Red Blood Count 4.31 M/mm3 (4.6-6.20); White Blood Count 7.1 K/mm3 (4.5-10.0)
[2023-11-06 07:02] LABS: Alanine Aminotransferase 42 U/L (6-50); Albumin Level 4.3 g/dL (3.5-5.1); Alkaline Phosphatase 65 U/L (38-126); Anion Gap 6 mmol/L (8-16); Aspartate Amino Transferase 33 U/L (17-59); Bilirubin,Total 1.1 mg/dL (0.2-1.3); Blood Urea Nitrogen 17 mg/dL (9-20); Carbon Dioxide 26 mmol/L (22-30); Chloride 103 mmol/L (98-107); Cholesterol 132 mg/dL (0-200); Estimated Glomerular Filt Rate > 60; Glucose 106 mg/dL (65-110); HDL Direct 51 mg/dL; Potassium 4.2 mmol/L (3.4-5.0); Sodium 135 mmol/L (137-145); Triglycerides 110 mg/dL (<150)
[2023-11-06 07:09] LABS: Hemoglobin A1C 5.4 % (<5.7)
[2023-11-06 07:12] LABS: LDL Cholesterol Direct 63 mg/dL
[2023-11-06 07:32] LABS: Prostate Specific Antigen 0.5 ng/mL (< OR = 4.0)
== END 2023-11-06 06:35 | disposition home or self-care (01) ==
LOC: ANHLAB 06:36
PROVIDERS: PCP Family Medicine; Visit Provider Family Medicine
DX: Z00.00 Encounter for general adult medical examination without abnormal findings (principal); E78.5 Hyperlipidemia, unspecified; R73.01 Impaired fasting glucose; I11.9 Hypertensive heart disease without heart failure; R35.1 Nocturia
CPT/HCPCS: 36415; 80053; 80061; 83036; 84153; 84443; 85027

== ENCOUNTER 2023-11-30 12:16 | Outpatient (CLI) | payer OTHER, SELFPAY ==
--- NOTE | ~2023-11-30 | CT_ITS ---
CT Scan of the Chest without Contrast: Clinical Indication: Lung cancer screening, personal history of nicotine dependence Technique: Contiguous sections were acquired throughout the chest without intravenous contrast. Dose reduction technique was used on this scan by utilizing automated exposure control and iterative recon struction technique. The dose-length product (DLP) was 215.13 mGy-cm. COMPARISON: 11/01/2022 Findings: There is no evidence of any significant mediastinal, hilar or axillary lymphadenopathy. The mediastin al soft tissues appear normal. There is no evidence of pleural or pericardial effusion. There is chronic appearing right basilar scarring or atelectasis. No suspicious pulmonary nodule seen . There is mild to moderate emphysema. Images through the upper abdomen reveal no abnormalities. Impression: Lung RADS 2: Benign appearance. 12 month follow-up screening CT advised. Reviewed, dictated and finalized at [facility]. T SUPPORT SPECIALIST Impression: Lung RADS 2: Benign appearance. 12 month follow-up screening CT advised.
== END 2023-11-30 12:17 | disposition home or self-care (01) ==
LOC: ANHIMG 12:16
PROVIDERS: PCP Family Medicine; Visit Provider Internal Medicine Pulmonary Disease
DX: Z12.2 Encounter for screening for malignant neoplasm of respiratory organs (principal); Z87.891 Personal history of nicotine dependence
CPT/HCPCS: 71271

== ENCOUNTER 2023-11-30 12:17 | Outpatient (CLI) | payer OTHER, SELFPAY ==
[2023-11-30 13:12] LABS: Alveolar/Arterial O2 Gradient 29.1 mmHg; Base Excess ABG -3.2 mEq/l (+/-2.0); Carboxyhemoglobin 0.3 % THb (0-2.0); Fractional Inspired Oxygen 21 %; HCO3 ABG 20.6 mEq/l (22.0-26.0); Methemoglobin ABG 0.2 %THb (0-1.5); Oxygen Content ABG 18.5 %vol (16.0-22.0); Oxygen Saturation ABG 96.1 % (95.0-100.0); Oxyhemoglobin 94.5 % THb (90.0-100.0); PCO2 ABG 33.4 mmHg (35.0-45.0); PO2 ABG 80.6 mmHg (80.0-100.0); PO2 FiO2 Ratio Arterial Blood 3.84 %; Total Hemoglobin 13.9 g/dL (12.0-18.0); pH ABG 7.408 (7.350-7.450)
[2023-11-30 13:15] LABS: Device ROOM AIR; Modified Allen's Test Pass; Site Drawn RIGHT RADIAL
--- NOTE | 2023-12-03 08:28 | WPDPFTINT ---
PFT Procedure Performed PFT Procedure Performed Plethysmography (Lung Vol) Diffusing Cap (DLCO) Flow Vol Loop Spirometry w/o Bronchodil PFT Interpretation Lung volumes were measured with the body plethysmography method. The elevated RV could be due to air trapping. The remaining lung volumes are unremarkable. Spirometry showed diminished expiratory flow rates and a diminished FEV1 to FVC ratio of 44%, consistent with obstructive airway disease. No post bronchodilator study was conducted. Lung diffusion capacity is within the normal range at 74% predicted. Impression: Mild obstructive airway disease. Lung diffusion capacity within the normal range.
--- NOTE | 2023-12-03 08:30 | WPDSIXMINUTE ---
Six Minute Walk Procedure Procedure Performed Pulmonary Stress Test (6 min walk) Six Minute Walk Six Minute Walk: This 6 minute walk test was conducted with the patient breathing ambient air. The pre-walk baseline oxyhemoglobin saturation was 96%. The patient walked 457 m with no stops during testing. During the walk the oxyhemoglobin saturation remained in the range of 94% to 96%. Impression: No evidence of oxyhemoglobin desaturation on this testing.
== END 2023-11-30 12:18 | disposition home or self-care (01) ==
LOC: ANHPFT 12:18
PROVIDERS: Internal Medicine Pulmonary Disease; PCP Family Medicine; Visit Provider Internal Medicine Pulmonary Disease
DX: J44.9 Chronic obstructive pulmonary disease, unspecified (principal); R94.2 Abnormal results of pulmonary function studies
CPT/HCPCS: 36600; 71271; 82375; 82805; 83050; 94060; 94618; 94726; 94729

== ENCOUNTER 2024-03-14 08:19 | Emergency (ER) | payer OTHER, SELFPAY ==
--- NOTE | ~2024-03-14 | XR_ITS ---
EXAMINATION: XR shoulder LT min 2V DATE: 03/14/2024 08:41 INDICATION: Left shoulder injury and pain. TECHNIQUE: 4 views of left shoulder were obtained. COMPARISON: Chest single view 10/09/2021 FINDINGS: Bone alignment is normal. No fracture. There is a chronic sclerotic lesion in proximal left humerus, which may be an enchondroma or osteonecrosis. There is mild osteoarthritis of glenohumeral joint. Acromioclavicular joint is normal. Median sternotomy wires and mediastinal surgical clips are seen, likely from prior coronary artery bypass grafting. IMPRESSION: 1. Mild osteoarthritis of glenohumeral joint. 2. Chronic sclerotic lesion in proximal left humerus, which may be an enchondroma or osteonecrosis. Reviewed, dictated and finalized at location A. IMPRESSION: 1. Mild osteoarthritis of glenohumeral joint. 2. Chronic sclerotic lesion in proximal left humerus, which may be an enchondro ma or osteonecrosis.
[2024-03-14 08:26] VITALS: BP 131/73; PULSE 88; RESP 16; TEMP 36.4; O2SAT 96
[2024-03-14 08:31] VITALS: BP 131/73; PULSE 70; RESP 16; TEMP 36.4; O2SAT 94
--- NOTE | 2024-03-14 09:22 | ED.UPPEXIN ---
HPI - Extremity Injury (Upper) General Chief Complaint: Extremity Injury, Upper Stated Complaint: shoulder pain Time Seen by Provider: 03/14/24 08:48 Source: patient Mode of arrival: ambulatory Limitations: no limitations History of Present Illness HPI narrative: 64-year-old with a history of CAD, hypertension, hyperlipidemia here with complaints of shoulder pain since last night. Patient states that he was trying to take wall and of his pants pocket and accidentally vitaly his shoulder. He denied any chest pain. Patient states he cannot raise his arm up because of the pain. MD complaint: injury to: left and shoulder (Left) Onset (ago): day(s) (1) Other injuries: none Handedness: right Place: home Severity: moderate Exacerbating factors: movement of extremity Associated symptoms: denies other symptoms Related Data Allergies Allergy/AdvReac Type Severity Reaction Status Date / Time No Known Allergies Allergy Verified 03/14/24 08:28 Review of Systems Review of Systems: All systems reviewed & are unremarkable except as noted in HPI and below Constitutional: Constitutional: Reports no additional constitutional complaints Eyes: Eyes: Reports no additional eye complaints ENT: Reports system reviewed and no additional complaints, except as documented Cardiovascular: Cardiovascular: Reports no additional cardiovascular complaints Respiratory: Respiratory: Reports no additional respiratory complaints Musculoskeletal: Musculoskeletal: Reports as per HPI Neurologic: Reports system reviewed and no additional complaints, except as documented PMFSH Past Medical History Medical History CAD (coronary artery disease) ANITA (generalized anxiety disorder) HLD (hyperlipidemia) HTN (hypertension) Hyperglyceridemia Hyperlipidemia LDL goal <70 Hypertension with heart disease IFG (impaired fasting glucose) Intermittent asthma Old CA (myocardial infarction) KIMI (obstructive sleep apnea) Surgical History Surgical History History of bunionectomy History of coronary artery bypass graft x 2 History of hemorrhoidectomy Family History Family History Other Unknown family medical history Social History Social History Smoking packs per day: 1 Smoking cigarettes per day: 20.0 Years smoked: 30 Smoking pack-years: 30.00 Smoking status: Former smoker Tobacco type: cigarettes Second hand tobacco smoke exposure: Yes Smoking end date: 10/15/04 Alcohol intake: current Drinks per week: 15 Substance use: current Substance use type: marijuana Living arrangements: with family Occupation/Education: occupation Gender identity (if verbalized by the patient): Male Sexual Orientation (if Verbalized by the Patient): Straight or Heterosexual Spiritual care concerns: No Agree to blood products: Yes Exam Narrative: GENERAL: Well-appearing, well-nourished, and in no acute distress. HEAD: Normocephalic, atraumatic. EYES: PERRLA and EOMI. ENT: Nares clear, no rhinorrhea or epistaxis. Mucous membranes moist. NECK: Supple. CHEST: Clear to auscultation. No respiratory distress. HEART: Regular rate and rhythm. No murmur heard. Normal peripheral pulses. ABDOMEN: Soft, nontender, nondistended, normal active bowel sounds. EXTREMITIES: Normal range of motion. No edema. No deformity of the left shoulder, painful ROM SKIN: Warm, dry, no rash. NEURO: No focal deficits. Alert and oriented x3. PSYCH: Normal mood and affect. Course Course Emergency Course: Patient comfortably resting informed him about his x-ray findings. Recommended him to take pain medication as prescribed, follow-up with his primary doctor consider physical therapy . Vital Signs Vital signs: Vital Signs Temperature 36.4 C
[2024-03-14 09:30] VITALS: BP 136/74; PULSE 72; RESP 16; TEMP 36.6; O2SAT 92
== END 2024-03-14 10:02 | disposition home or self-care (01) ==
PROVIDERS: Emergency Provider Family Medicine; PCP Family Medicine
DX: M25.512 Pain in left shoulder (principal); I25.10 Atherosclerotic heart disease of native coronary artery without angina pectoris; I11.9 Hypertensive heart disease without heart failure; E78.5 Hyperlipidemia, unspecified; G47.33 Obstructive sleep apnea (adult) (pediatric); F41.1 Generalized anxiety disorder; Z95.1 Presence of aortocoronary bypass graft; Z87.891 Personal history of nicotine dependence; Z79.51 Long term (current) use of inhaled steroids; Z79.82 Long term (current) use of aspirin
CPT/HCPCS: 73030; 99283

== ENCOUNTER 2024-10-16 15:56 | Outpatient (CLI) | payer OTHER, SELFPAY ==
[2024-10-16 17:03] LABS: Influenza A QL RT-PCR Negative (Negative); Influenza B QL RT-PCR Negative (Negative); RSV RNA, RT-PCR Negative (Negative); SARS-CoV-2 RNA PCR Negative (Negative)
== END 2024-10-16 15:57 | disposition home or self-care (01) ==
LOC: ANHLAB 15:57
PROVIDERS: PCP Family Medicine; Visit Provider Physician Assistant Medical
DX: R53.83 Other fatigue (principal); J02.9 Acute pharyngitis, unspecified; Z20.822 Contact with and (suspected) exposure to COVID-19
CPT/HCPCS: 87637

== ENCOUNTER 2024-11-19 12:34 | Outpatient (CLI) | payer OTHER, SELFPAY ==
--- NOTE | ~2024-11-19 | XR_ITS ---
Right Knee Technique: AP, lateral, and sunrise views were obtained. Clinical History: Pain Findings: No fracture or dislocation is seen. Osseous alignment is anatomic. Joint spaces are preserv ed without degenerative or erosive change. Soft tissues are unremarkable. No joint effusion is seen. Impression: Unremarkable right knee radiographs. Reviewed, dictated and finalized at location . RIALS ENGINEER Impression: Unremarkable right knee radiographs.
[2024-11-19 13:23] LABS: Hematocrit 42.1 % (42.0-52.0); Hemoglobin 13.8 g/dL (14.0-18.0); Mean Corpuscular HGB Conc 32.8 g/dl (32-36); Mean Corpuscular Hemoglobin 30.4 pg (26-34); Mean Corpuscular Volume 92.7 fl (80-100); Mean Platelet Volume 9.7 fl (7.4-10.4); Platelet Count Result 255 k/mm3 (150-375); Red Blood Count 4.54 M/mm3 (4.6-6.20); Red Cell Distribution Width 12.6 % (11.5-14.5)
[2024-11-19 13:24] LABS: Add Urine Microscopic? NO; Appearance Urine Clear (Clear); Bilirubin Urine Negative (Negative); Blood Urine Negative (Negative); Color Urine Yellow (Yellow); Glucose Urine UA Negative (Negative); Ketones Urine Negative (Negative); Leukocyte Esterase Ur Negative LEU/UL (Negative); Nitrate Urine Negative (Negative); Protein Urine Negative (Negative); Specific Grav Ur 1.009 (1.001-1.035); Urobilinogen Urine 0.2 mg/dL (<2.0); pH Urine 5.5 (5.0-9.0)
--- OUTSIDE RECORDS SUMMARY | 2024-11-19 13:33 | XMS_ITS | Clinical Summary ---
Author Organization [facility] Address [facility] [place] [address] Care Team Providers Care Octave Board Assembler Name Role Phone Antione Patel MD Unavailable [phone] Kelechi Oneal MD Unavailable [phone] Marvin Mansfield MD Primary Care Provider Allergies No known active allergies Medications aspirin 81 mg enteric coated tablet Take 1 tablet (81 mg total) by mouth daily 30 tablet 1 07/20/2020 Active albuterol HFA (PROVENTIL HFA,VENTOLIN HFA,PROAIR HFA) 90 mcg/actuation inhaler Inhale 2 puffs every 4 (four) hours as needed for wheezing 1 Inhaler 1 07/19/2020 Active lisinopriL (PRINIVIL,ZESTR IL) 10 mg tablet Take 10 mg by mouth daily Active PARoxetine (PAXIL) 20 mg tablet Take 20 mg by mouth every morning Active atorvastatin (LIPITOR) 40 mg tablet Take 40 mg by mouth daily Active Active Problems Problem Noted Date Diagnosed Date Hx of CABG 08/19/2020 NSTEMI (non-ST elevated myocardial infarction) ( [facility]) 07/12/2020 Coronary artery disease invo lving [place] heart without angina pectoris 07/12/2020 Overview (07/13/2020): Added automatically from request for surgery [id number] Induratio penis plastica 09/27/2011 Surgical History Surgery Date Site/Laterality Comments CORONARY ARTERY BYPASS GRAFT BUNIONECTOMY Medical History Medical History Date Comments Hypertension Bunion Social History Tobacco Use Types Packs/Day Years Used Date Smoking Tobacco: Former Cigarettes Q uit: 08/19/2005 Smokeless Tobacco: Never Alcohol Use Standard Drinks/Week Comments Yes 21 (1 standard drink = 0.6 oz pu re alcohol) Sex and Gender Information Value Date Recorded Sex Assigned at Not on file Legal Sex Male 9:28 AM CONTROL AREA OPERATOR Gender Identity Not on file Sexual Orientation Not on file Obstetrics History Last Filed Vital Signs Vital Sign Reading Time Taken Comments Blood Pressure 132/84 11/23/2020 9:58 AM CONTROL AREA OPERATOR Pulse 80 11/23/2020 9:58 AM CONTROL AREA OPERATOR Temperature 36.6 ??C (97.8 ??F) 08/26/2020 10:[address] Respiratory Rate 14 08/26/2020 10:37 AM CONTROL AREA OPERATOR Oxygen Saturation 98% 11/23/2020 9:58 AM CONTROL AREA OPERATOR Inhaled Oxygen Concentration - - Weight 102.1 kg (225 lb) 11/23/2020 9:58 AM CONTROL AREA OPERATOR Height 185.4 cm (6' 1 ) 11/23/2020 9:58 AM CONTROL AREA OPERATOR Body Mass Index 29.69 11/23/2020 9:58 AM CONTROL AREA OPERATOR Plan of Treatment Not on file Insurance [facility] [place] [id number] [facility] [place] [id number] Advance Directives For more information, please contact: [phone] * Full Code (Latest Code Status on File) Date Activated Date Inactivated Comments 07/12/2020 7:37 PM 07/19/2020 9:02 PM Care Teams Octave Board Assembler Relationship Specialty Start Date End Date Marvin Mansfield MD [address] [facility] [address] [place] [address] PCP - General Family Medicine 08/19/20 Antione Patel MD Surgeon Cardiothoracic Surgery 07/19/20 Kelechi Oneal MD [address] [facility] [address] [place] [address] Consulting Physician Cardiology 07/19/20
--- OUTSIDE RECORDS SUMMARY | 2024-11-19 13:33 | XMS_ITS | Referral Summary ---
Author Organization [facility] Address [facility] [place] [address] Care Team Providers Care Floor Renovator Name Role Phone Antione Patel MD Unavailable [phone] Kelechi Oneal MD Unavailable [phone] Marvin aMnsfield MD Primary Care Provider Allergies No known [...] 08/19/2020 NSTEMI (non-ST elevated myocardial infarction) ( [facility]) 07/12/2020 Coronary artery disease invo lving [place] heart without angina pectoris 07/12/2020 Overview (07/13/2020): Added automatically from request for surgery [id number] Induratio penis plastica 09/27/2011 Social History Tobacco Use Types Packs/Day Years Used Date Smoking Tobacco: Former Cigarettes Q uit: 08/19/2005 Smokeless Tobacco: Never Alcohol Use Standard Drinks/Week Comments Yes 21 (1 standard drink = 0.6 oz pu re alcohol) Sex and Gender Information Value Date Recorded Sex Assigned at Not on file Legal Sex Male 9:28 AM IT HELP DESK TECHNICIAN Gender Identity Not on file Sexual Orientation Not on file Last Filed Vital Signs Vital Sign Reading Time Taken Comments Blood Pressure 132/84 11/23/2020 9:58 AM IT HELP DESK TECHNICIAN Pulse 80 11/23/2020 9:58 AM IT HELP DESK TECHNICIAN Temperature 36.6 ??C (97.8 ??F) 08/26/2020 10:[address] Respiratory Rate 14 08/26/2020 10:37 AM IT HELP DESK TECHNICIAN Oxygen Saturation 98% 11/23/2020 9:58 AM IT HELP DESK TECHNICIAN Inhaled Oxygen Concentration - - Weight 102.1 kg (225 lb) 11/23/2020 9:58 AM IT HELP DESK TECHNICIAN Height 185.4 cm (6' 1 ) 11/23/2020 9:58 AM IT HELP DESK TECHNICIAN Body Mass Index 29.69 11/23/2020 9:58 AM IT HELP DESK TECHNICIAN Plan of Treatment Not on file Insurance [facility] Address: [facility] [address] [place] [address] [facility] Member Subscriber Plan / Payer (Ef fective 2017-Present) Name:Rafael Arora Relation to Subscriber:Self Name:Rafael Arora Payer ID:[id number] (NAIC) Type:MANAGED CARE OTHER Address: [address] [place] [phone] [facility] Member Subscriber Plan / Payer (Ef fective 2017-Present) Name:Rafael Arora Relation to Subscriber:Self Name:Rafael Arora Payer ID:[id number] (NAIC) Type:MANAGED CARE OTHER Address: [address] [place] [phone] Advance Directives For more information, please contact: [phone] * Full Code (Latest Code Status on File) Date Activated Date Inactivated Comments 07/12/2020 7:37 PM 07/19/2020 9:02 PM Care Teams Floor Renovator Relationship Specialty Start Date End Date Marvin Mansfield MD [address] [place] [address] [place] [address] PCP - General Family Medicine 08/19/20 Antione Patel MD Surgeon Cardiothoracic Surgery 07/19/20 Kelechi Oneal MD [address] [place] [address] [place] [address] Consulting Physician Cardiology 07/19/20
--- OUTSIDE RECORDS SUMMARY | 2024-11-19 13:33 | XMS_ITS | Clinical Summary ---
Author Organization [facility] Address [address] [place] [address] Care Team Providers Care Vice President Global Advertising Sales Name Role Phone Sameer Gonsalez DO Primary Care Provider [phone] Social History Tobacco Use Types Packs/Day Years Used Date Smoking Tobacco: Never Assessed Sex and Gender Information Value Date Recorded Sex Assigned at Not on file Legal Sex Male 8:39 PM CDT Gender Identity Not on file Sexual Orientation Not on file Last Filed Vital Signs Vital Sign Reading Time Taken Comments Blood Pressure 162/92 10/23/2017 8:58 AM CANE PACKER Pulse 88 02/21/2016 1:23 PM CDT Temperature - - Respiratory Rate - - Oxygen Saturation - - Inhaled Oxygen Concentration - - Weight 99.3 kg (219 lb) 10/23/2017 8:58 AM CANE PACKER Height 185.4 cm (6' 1 ) 10/23/2017 8:58 AM CANE PACKER Body Mass Index 28.89 10/23/2017 8:58 AM CANE PACKER Plan of Treatment Health Maintenance Due Date Last Done Comments Colorectal Cancer Screening Colonoscopy (10 Years) 1960 Annual Physical 1963 Hepatitis C 1978 DTaP, Tdap and Td Vaccines ( 1 - Tdap) 1979 Zoster Vaccines (1 of 2) 2010 COVID-19 Vaccine ( - 2023-2 5 season) 2024 Influenza Adult (#1) 2024 RSV Immunization or 60+ Years (1 - 1-dose 75+ series) 2035 Meningococcal B Vaccine Aged Out No l onger eligible based on patient's age to complete this topic Meningococcal Vaccine Aged Out No meseret dawn eligible based on patient's age to complete this topic Pneumococcal Vaccine: Pediat rics (0 to 5 Years) and At-Risk Patients (6 to 64 Years) Aged Out No longer eligible b ased on patient's age to complete this topic RSV Immunizations Under 20 Months Aged Out No longer eligible based on patient's age to complete this topic Care Teams Vice President Global Advertising Sales Relationship Specialty Start Date End Date Sameer Gonsalez DO PCP - General 04/27/16
[2024-11-19 13:35] LABS: Hemoglobin A1C 5.3 % (<5.7)
[2024-11-19 13:38] LABS: Alanine Aminotransferase 25 U/L (6-50); Albumin Level 4.4 g/dL (3.5-5.1); Alkaline Phosphatase 80 U/L (38-126); Anion Gap 10 mmol/L (4-12); Aspartate Amino Transferase 22 U/L (17-59); Bilirubin,Total 0.7 mg/dL (0.2-1.3); Blood Urea Nitrogen 16 mg/dL (9-20); Calcium 9.3 mg/dL (8.4-10.2); Carbon Dioxide 23 mmol/L (22-30); Chloride 104 mmol/L (98-107); Cholesterol 134 mg/dL (0-200); Estimated Glomerular Filt Rate > 60; Glucose 89 mg/dL (65-110); HDL Direct 54 mg/dL; Potassium 3.9 mmol/L (3.4-5.0); Sodium 137 mmol/L (137-145); Triglycerides 149 mg/dL (<150)
[2024-11-19 13:49] LABS: LDL Cholesterol Direct 60 mg/dL
[2024-11-19 14:07] LABS: Prostate Specific Antigen 0.5 ng/mL (< OR = 4.0)
== END 2024-11-19 12:35 | disposition home or self-care (01) ==
PROVIDERS: PCP Family Medicine; Visit Provider Family Medicine
DX: Z00.00 Encounter for general adult medical examination without abnormal findings (principal); M25.561 Pain in right knee; I11.9 Hypertensive heart disease without heart failure; I25.10 Atherosclerotic heart disease of native coronary artery without angina pectoris; E78.5 Hyperlipidemia, unspecified; R73.01 Impaired fasting glucose; R35.1 Nocturia
CPT/HCPCS: 36415; 73562; 80053; 80061; 81003; 83036; 84153; 84443; 85027

== ENCOUNTER 2024-12-12 15:28 | Outpatient (CLI) | payer OTHER, SELFPAY ==
[2024-12-12 16:32] LABS: Influenza A QL RT-PCR Negative (Negative); Influenza B QL RT-PCR Negative (Negative); RSV RNA, RT-PCR Negative (Negative); SARS-CoV-2 RNA PCR Negative (Negative)
== END 2024-12-12 15:29 | disposition home or self-care (01) ==
LOC: ANHLAB 15:29
PROVIDERS: PCP Family Medicine; Visit Provider Physician Assistant Medical
DX: J02.9 Acute pharyngitis, unspecified (principal); Z20.822 Contact with and (suspected) exposure to COVID-19
CPT/HCPCS: 87637

== ENCOUNTER 2025-04-09 11:19 | Outpatient (CLI) | payer MEDICARE, SELFPAY ==
--- NOTE | ~2025-04-09 | US_ITS ---
EXAMINATION: US scrotum doppler DATE: 04/09/2025 11:55 INDICATION: Right scrotal mass TECHNIQUE: Testicular sonogram utilizing grayscale and Doppler COMPARISON: None. FINDINGS: The right testis measures 4.3 x 2.0 x 3.1 cm. The left testis measures 4.7 x 2.0 x 2.3 cm. Symmetric normal grayscale appearance to both testes. There is normal vascular flow to both testes. There are c ouple large anechoic right epididymal head cysts which measure 3.9 x 3.3 x 1.9 cm and 1.4 x 1.1 x 1.1 cm. Remainder of the right epididymis is unremarkable with normal vascular flow. The left epididymis is normal with normal vascular flow. There is no varicocele or hydrocele. IMPRESSION: 1. A couple large right epididymal head cysts, the largest measuring 3.9 cm in maximal diameter. Nor mal testes. Reviewed, dictated and finalized at location A. IMPRESSION: 1. A couple large right epididymal head cysts, the largest measuring 3.9 cm in maximal diameter. Normal testes.
== END 2025-04-09 11:20 | disposition home or self-care (01) ==
LOC: MICIMG 11:19
PROVIDERS: PCP Family Medicine; Visit Provider Urology
DX: N50.89 Other specified disorders of the male genital organs (principal); N50.3 Cyst of epididymis
CPT/HCPCS: 76870; 93976

== ENCOUNTER 2025-09-05 07:34 | Outpatient (CLI) | payer MEDICARE, SELFPAY ==
[2025-09-05 08:02] LABS: Hematocrit 42.5 % (42.0-52.0); Hemoglobin 13.9 g/dL (14.0-18.0); Mean Corpuscular HGB Conc 32.7 g/dl (32-36); Mean Corpuscular Hemoglobin 29.9 pg (26-34); Mean Corpuscular Volume 91.4 fl (80-100); Platelet Count Result 230 k/mm3 (150-375); Red Blood Count 4.65 M/mm3 (4.6-6.20); White Blood Count 8.0 K/mm3 (4.5-10.0)
[2025-09-05 08:17] LABS: Alanine Aminotransferase 31 U/L (6-50); Albumin Level 4.8 g/dL (3.5-5.1); Alkaline Phosphatase 66 U/L (38-126); Anion Gap 11 mmol/L (4-12); Aspartate Amino Transferase 28 U/L (17-59); Bilirubin,Total 0.7 mg/dL (0.2-1.3); Blood Urea Nitrogen 23 mg/dL (9-20); Calcium 9.6 mg/dL (8.4-10.2); Carbon Dioxide 21 mmol/L (22-30); Chloride 103 mmol/L (98-107); Estimated Glomerular Filt Rate > 60; Glucose 112 mg/dL (65-110); Potassium 4.1 mmol/L (3.4-5.0); Sodium 135 mmol/L (137-145); Total Protein 7.5 g/dL (6.3-8.2)
[2025-09-05 08:19] LABS: Hemoglobin A1C 5.4 % (<5.7)
[2025-09-05 08:53] LABS: Thyroid Stimulating Hormone 3.530 uIU/mL (0.465-4.680)
[2025-09-05 09:28] LABS: Vitamin B12 467.0 pg/mL (239-931)
== END 2025-09-05 07:35 | disposition home or self-care (01) ==
PROVIDERS: PCP Family Medicine; Visit Provider Family Medicine
DX: R73.01 Impaired fasting glucose (principal); I11.9 Hypertensive heart disease without heart failure; R53.83 Other fatigue
CPT/HCPCS: 36415; 80053; 82607; 82746; 83036; 84443; 85027